=== PATIENT | male | born 1960 | race African-American/Black ===

== ENCOUNTER 2016-10-15 18:04 | Emergency (ER) | payer MEDICARE, OTHER ==
[~2016-10-15] VITALS: Ht 193 cm; Wt 77.3 kg
[~2016-10-15 18:04] MED LIST: ALBU8HFA IH; DIVA500T35 PO; LISI-662 PO; LURA80 PO; OLAN10TA6 PO; OLAN5Z PO; VITAD1000 PO
[2016-10-15 20:00] VITALS: BP 127/82
[2016-10-15] MEDS ORDERED: BENZTROPINE MESYLATE 1 MG TABLET PO ONE (20:00)
[2016-10-15] MEDS ORDERED: LORazepam 1 MG TABLET PO ONE (20:00)
[2016-10-15] MEDS ORDERED: OLANZapine 5 MG TABLET PO ONE (20:00)
== END 2016-10-15 20:20 | disposition home or self-care (01) ==
LOC: EMS 18:07
DX: F20.9 Schizophrenia, unspecified (principal)
CPT/HCPCS: 99284

== ENCOUNTER 2016-10-17 17:03 | Inpatient (IN) | payer MEDICARE, MEDICAID ==
[~2016-10-17] VITALS: Ht 193 cm; Wt 68.2 kg
[~2016-10-17 17:03] MED LIST changes: -OLAN5Z PO
[2016-10-17 18:23] LABS: BASOPHILS % (AUTO) 0.4 % (0.0-2.0); EOSINOPHILS % (AUTO) 0.5 % (1.0-6.0); HEMATOCRIT 42.4 % (41-53); HEMOGLOBIN 14.1 g/dL (13.5-17.5); LYMPHOCYTES # (AUTO) 0.9 K/uL (1.0-4.8); LYMPHOCYTES % (AUTO) 22.4 % (22.0-44.0); MEAN CORPUSCULAR HEMOGLOBIN 30.8 pg (26.0-34.0); MEAN CORPUSCULAR HGB CONC 33.2 G/dL (31.0-37.0); MEAN CORPUSCULAR VOLUME 93 fL (80-100); MONOCYTES # (AUTO) 0.4 K/uL (0.1-1.0); MONOCYTES % (AUTO) 11.1 % (2.0-9.0); NEUTROPHILS # (AUTO) 2.6 K/uL (1.8-7.7); NEUTROPHILS % (AUTO) 65.6 % (40.0-70.0); PLATELET COUNT (AUTO) 110 K/uL (150-450); RED BLOOD CELL COUNT(AUTO) 4.57 MIL/uL (4.50-5.90); RED CELL DISTRIBUTION WIDTH 14.1 % (11.5-14.5)
[2016-10-17 18:33] LABS: WHITE BLOOD COUNT (AUTO) 4.9 K/uL (4.5-11.0)
[2016-10-17 18:34] LABS: ANION GAP 9 mmol/L (8-16); CALCIUM, TOTAL 9.5 mg/dL (8.8-10.5); CARBON DIOXIDE 29 mmol/L (22-29); CHLORIDE 108 mmol/L (98-107); CREATININE 1.76 mg/dL (0.60-1.30); GLOMERULAR FILTR. RATE CALC 48 mL/min (>60); POTASSIUM 4.4 mmol/L (3.5-5.1); SODIUM SERUM 146 mmol/L (136-145); UREA NITROGEN, BLOOD 20 mg/dL (7-18)
[2016-10-17 18:42] LABS: ALANINE AMINOTRANSFERASE 23 U/L (12-78); ALBUMIN 4.1 g/dL (3.4-5.0); ASPARTATE AMINOTRANSFERASE 38 U/L (15-37); BILIRUBIN,TOTAL 1.1 mg/dL (0.1-1.0); TOTAL PROTEIN, SERUM 8.2 g/dL (6.4-8.2)
[2016-10-17] MEDS ORDERED: ZOLPIDEM TARTRATE 10 MG TABLET PO PRN (20:00)
[2016-10-17] MEDS ORDERED: HALOPERIDOL 5 MG TABLET PO ONE (20:15)
[2016-10-17] MEDS ORDERED: LORazepam 2 MG TABLET PO ONE (20:15)
[2016-10-17 22:38] VITALS: BP 118/103
[2016-10-17] MEDS ORDERED: ALBUTEROL SULFATE HFA 90 MCG/PUFF 8 GM INHALER IH PRN (23:15)
[2016-10-18] MEDS ORDERED: ALBUTEROL SULFATE HFA 90 MCG/PUFF 8 GM INHALER IH PRN (07:45)
[2016-10-18] MEDS ORDERED: IBUPROFEN 600 MG TABLET PO PRN (07:45)
[2016-10-18] MEDS ORDERED: ACETAMINOPHEN 325 MG TABLET PO PRN (07:45)
[2016-10-18] MEDS ORDERED: LOPERAMIDE HCL 2 MG CAPSULE PO PRN (07:45)
[2016-10-18] MEDS ORDERED: PETROLATUM,WHITE 71 GM JELLY TP PRN (07:45)
[2016-10-18] MEDS ORDERED: CloNIDine HCL 0.1 MG TABLET PO PRN (07:45)
[2016-10-18] MEDS ORDERED: MAGNESIUM HYDROXIDE SUSPENSION 30 ML UDCUP PO PRN (07:45)
[2016-10-18] MEDS ORDERED: MAG HYDROX/AL HYDROX/SIMETH ES 30 ML SUSPENSION UDCUP PO PRN (07:45)
[2016-10-18] MEDS ORDERED: BACITRACIN 28.4 GM OINTMENT TP PRN (07:45)
[2016-10-18] MEDS ORDERED: ONDANSETRON HCL 4 MG TABLET PO PRN (07:45)
[2016-10-18] MEDS ORDERED: BENZOCAINE/MENTHOL LOZENGE [8 LOZENGES/PACKET] MM PRN (08:00)
[2016-10-18 08:32] VITALS: BP 139/61
[2016-10-18] MEDS: LISINOPRIL 20 MG TABLET PO SCH (08:59)
[2016-10-18] MEDS: MULTIVITAMINS WITH MINERALS, THERAPEUTIC TABLET PO SCH (08:59)
[2016-10-18] MEDS: NICOTINE 21 MG/24 HOUR PATCH TD SCH (09:00)
[2016-10-18] MEDS: LORazepam 1 MG TABLET PO PRN (12:37)
[2016-10-18] MEDS: HALOPERIDOL 5 MG TABLET PO PRN (12:37)
[2016-10-18 16:50] VITALS: BP_SYST 138; BP_SYST 140; BP_DIAS 73; BP_DIAS 82
[2016-10-18] MEDS: OLANZapine 10 MG RAPDIS TABLET PO SCH (21:30)
[2016-10-18] MEDS: DIVALPROEX SODIUM 500 MG DR TABLET PO SCH (21:30)
[2016-10-19 02:24] VITALS: BP 141/98
[2016-10-19 06:53] LABS: ANION GAP 6 mmol/L (8-16); CALCIUM, TOTAL 8.8 mg/dL (8.8-10.5); CARBON DIOXIDE 29 mmol/L (22-29); CHLORIDE 104 mmol/L (98-107); CREATININE 1.12 mg/dL (0.60-1.30); GLOMERULAR FILTR. RATE CALC > 60 mL/min (>60); POTASSIUM 3.8 mmol/L (3.5-5.1); SODIUM SERUM 139 mmol/L (136-145); UREA NITROGEN, BLOOD 22 mg/dL (7-18)
[2016-10-19] MEDS: LISINOPRIL 20 MG TABLET PO SCH (08:39)
[2016-10-19] MEDS: MULTIVITAMINS WITH MINERALS, THERAPEUTIC TABLET PO SCH (08:39)
[2016-10-19] MEDS: NICOTINE 21 MG/24 HOUR PATCH TD SCH (08:41)
[2016-10-19 09:29] VITALS: BP 128/88
[2016-10-19] MEDS: HALOPERIDOL 5 MG TABLET PO PRN (10:54)
[2016-10-19] MEDS: LORazepam 1 MG TABLET PO PRN (10:54)
[2016-10-19 16:31] VITALS: BP 102/60
[2016-10-19] MEDS: OLANZapine 10 MG RAPDIS TABLET PO SCH (21:36)
[2016-10-19] MEDS: DIVALPROEX SODIUM 500 MG DR TABLET PO SCH (21:36)
[2016-10-19] MEDS ORDERED: PNEUMOCOCCAL VACCINE POLYVALENT 0.5 ML VIAL [PPSV23] IM ONE (22:15)
[2016-10-20] MEDS: LISINOPRIL 20 MG TABLET PO SCH (09:28)
[2016-10-20] MEDS: MULTIVITAMINS WITH MINERALS, THERAPEUTIC TABLET PO SCH (09:28)
[2016-10-20] MEDS: LORazepam 1 MG TABLET PO PRN (09:31)
[2016-10-20] MEDS: HALOPERIDOL 5 MG TABLET PO PRN (09:31)
[2016-10-20] MEDS: NICOTINE 21 MG/24 HOUR PATCH TD SCH (09:34)
[2016-10-20 10:33] VITALS: BP 117/64
[2016-10-20 19:19] VITALS: BP 111/58
[2016-10-20] MEDS: OLANZapine 10 MG RAPDIS TABLET PO SCH (21:23)
[2016-10-20] MEDS: DIVALPROEX SODIUM 500 MG DR TABLET PO SCH (21:23)
[2016-10-21 06:47] LABS: HEMATOCRIT 38.3 % (41-53); HEMOGLOBIN 12.8 g/dL (13.5-17.5); MEAN CORPUSCULAR HEMOGLOBIN 30.9 pg (26.0-34.0); MEAN CORPUSCULAR HGB CONC 33.3 G/dL (31.0-37.0); MEAN CORPUSCULAR VOLUME 93 fL (80-100); PLATELET COUNT (AUTO) 109 K/uL (150-450); RED BLOOD CELL COUNT(AUTO) 4.14 MIL/uL (4.50-5.90); RED CELL DISTRIBUTION WIDTH 13.8 % (11.5-14.5); WHITE BLOOD COUNT (AUTO) 3.3 K/uL (4.5-11.0)
[2016-10-21 07:12] LABS: ALANINE AMINOTRANSFERASE 25 U/L (12-78); ALBUMIN 3.3 g/dL (3.4-5.0); ANION GAP 4 mmol/L (8-16); ASPARTATE AMINOTRANSFERASE 16 U/L (15-37); BILIRUBIN,TOTAL 0.4 mg/dL (0.1-1.0); CALCIUM, TOTAL 8.9 mg/dL (8.8-10.5); CARBON DIOXIDE 32 mmol/L (22-29); CHLORIDE 106 mmol/L (98-107); CHOL/HDL RATIO 2.7 (4.2-7.3); CREATININE 1.05 mg/dL (0.60-1.30); GLOMERULAR FILTR. RATE CALC > 60 mL/min (>60); PHOSPHORUS 4.3 mg/dL (2.5-4.9); POTASSIUM 4.1 mmol/L (3.5-5.1); SODIUM SERUM 142 mmol/L (136-145); UREA NITROGEN, BLOOD 21 mg/dL (7-18)
[2016-10-21 08:15] VITALS: BP 119/65
[2016-10-21] MEDS: LISINOPRIL 20 MG TABLET PO SCH (09:23)
[2016-10-21] MEDS: MULTIVITAMINS WITH MINERALS, THERAPEUTIC TABLET PO SCH (09:23)
[2016-10-21] MEDS: NICOTINE 21 MG/24 HOUR PATCH TD SCH (09:24)
[2016-10-21 10:25] LABS: BAND NEUTROPHILS % (MANUAL) 1 % (1-5); EOSINOPHILS % (MANUAL) 2 % (1-6); LYMPHOCYTES % (MANUAL) 79 % (22-44); RBC MORPHOLOGY COMMENT NORMAL RBC MORPH; TOTAL CELLS COUNTED 100
[2016-10-21 16:35] VITALS: BP 122/79
[2016-10-21] MEDS: OLANZapine 10 MG RAPDIS TABLET PO SCH (20:24)
[2016-10-21] MEDS: DIVALPROEX SODIUM 500 MG DR TABLET PO SCH (20:24)
[2016-10-22 09:20] VITALS: BP 104/62
[2016-10-22] MEDS: MULTIVITAMINS WITH MINERALS, THERAPEUTIC TABLET PO SCH (09:26)
[2016-10-22] MEDS: NICOTINE 21 MG/24 HOUR PATCH TD SCH (09:28)
[2016-10-22] MEDS: LISINOPRIL 20 MG TABLET PO SCH (09:35)
[2016-10-22 19:02] VITALS: BP 118/64
[2016-10-22] MEDS: OLANZapine 10 MG RAPDIS TABLET PO SCH (20:55)
[2016-10-22] MEDS: DIVALPROEX SODIUM 500 MG DR TABLET PO SCH (20:55)
[2016-10-23] MEDS: MULTIVITAMINS WITH MINERALS, THERAPEUTIC TABLET PO SCH (08:47)
[2016-10-23] MEDS: LISINOPRIL 20 MG TABLET PO SCH (08:47)
[2016-10-23] MEDS: NICOTINE 21 MG/24 HOUR PATCH TD SCH (08:49)
[2016-10-23 09:29] VITALS: BP 112/78
[2016-10-23] MEDS ORDERED: MV-M1TAB2 PO (14:58)
[2016-10-23] MEDS ORDERED: FERROUS SULFATE 325 MG EC TABLET PO SCH (17:30)
== END 2016-10-23 15:00 | disposition home or self-care (01) | DRG 885 ==
LOC: EMS 17:05 → 3EI 20:16
DX: F20.0 Paranoid schizophrenia (principal); E87.0 Hyperosmolality and hypernatremia; E44.0 Moderate protein-calorie malnutrition; N17.9 Acute kidney failure, unspecified; Z68.1 Body mass index [BMI] 19.9 or less, adult; I10 Essential (primary) hypertension; R25.1 Tremor, unspecified; J44.9 Chronic obstructive pulmonary disease, unspecified; D69.6 Thrombocytopenia, unspecified; E55.9 Vitamin D deficiency, unspecified; F17.200 Nicotine dependence, unspecified, uncomplicated; D64.9 Anemia, unspecified; Z91.83 Wandering in diseases classified elsewhere; Z28.21 Immunization not carried out because of patient refusal; Z56.0 Unemployment, unspecified
CPT/HCPCS: 82306; 83735; 84100; 85049; 99285; G0480

== ENCOUNTER 2016-10-27 17:59 | Emergency (ER) | payer MEDICARE, MEDICAID ==
[~2016-10-27 17:59] MED LIST changes: -ALBU8HFA IH; -LURA80 PO; +MV-M1TAB2 PO; -VITAD1000 PO
== END 2016-10-27 18:05 | disposition left against medical advice (07) ==
LOC: EMS 18:02
DX: M79.606 Pain in leg, unspecified (principal); W19.XXXA Unspecified fall, initial encounter; Y93.89 Activity, other specified; Y92.89 Other specified places as the place of occurrence of the external cause; Y99.8 Other external cause status; Z53.21 Procedure and treatment not carried out due to patient leaving prior to being seen by health care provider

== ENCOUNTER 2018-07-19 19:10 | Emergency (ER) | payer MEDICARE, MEDICAID ==
[~2018-07-19] VITALS: Ht 185.4 cm; Wt 72.7 kg
[~2018-07-19 19:10] MED LIST changes: +DIVA-78 PO; -DIVA500T35 PO
[2018-07-19] MEDS ORDERED: LISI-662 PO (19:47)
[2018-07-19] MEDS ORDERED: OLAN10TA3 PO (19:47)
[2018-07-19] MEDS ORDERED: ZOLP10TA7 PO (19:47)
[2018-07-19] MEDS ORDERED: ARIP15TA2 PO (19:47)
[2018-07-19 21:40] LABS: BASOPHILS % (AUTO) 0.4 % (0.0-2.0); EOSINOPHILS % (AUTO) 2.7 % (1.0-6.0); HEMATOCRIT 38.7 % (41-53); HEMOGLOBIN 12.8 g/dL (13.5-17.5); LYMPHOCYTES # (AUTO) 1.1 K/uL (1.0-4.8); LYMPHOCYTES % (AUTO) 29.6 % (22.0-44.0); MEAN CORPUSCULAR HEMOGLOBIN 30.2 pg (26.0-34.0); MEAN CORPUSCULAR HGB CONC 33.1 G/dL (31.0-37.0); MEAN CORPUSCULAR VOLUME 91 fL (80-100); MONOCYTES # (AUTO) 0.4 K/uL (0.1-1.0); MONOCYTES % (AUTO) 10.7 % (2.0-9.0); NEUTROPHILS % (AUTO) 56.6 % (40.0-70.0); PLATELET COUNT (AUTO) 164 K/uL (150-450); RED BLOOD CELL COUNT(AUTO) 4.24 MIL/uL (4.50-5.90); RED CELL DISTRIBUTION WIDTH 16.5 % (11.5-14.5)
[2018-07-19 21:53] LABS: ANION GAP 5 mmol/L (8-16); CALCIUM, TOTAL 9.7 mg/dL (8.8-10.5); CARBON DIOXIDE 30 mmol/L (22-29); CHLORIDE 107 mmol/L (98-107); CREATININE 0.87 mg/dL (0.60-1.30); GLOMERULAR FILTR. RATE CALC > 60 mL/min (>60); GLUCOSE,RANDOM 71 mg/dL (70-110); POTASSIUM 4.4 mmol/L (3.5-5.1); SODIUM SERUM 142 mmol/L (136-145); UREA NITROGEN, BLOOD 21 mg/dL (7-18)
[2018-07-19 21:58] LABS: ALANINE AMINOTRANSFERASE 67 U/L (12-78); ALBUMIN 3.5 g/dL (3.4-5.0); ALKALINE PHOSPHATASE 75 U/L (46-116); ASPARTATE AMINOTRANSFERASE 36 U/L (15-37); BILIRUBIN,TOTAL 0.7 mg/dL (0.1-1.0); TOTAL PROTEIN, SERUM 7.5 g/dL (6.4-8.2)
[2018-07-20] MEDS ORDERED: LORazepam 2 MG/ML VIAL IM ONE
[2018-07-20] MEDS ORDERED: DiphenhydrAMINE HCL 50 MG/ML VIAL IM ONE
[2018-07-20 07:35] VITALS: BP 135/84
== END 2018-07-20 07:42 | disposition home or self-care (01) ==
LOC: EMS 19:12
DX: F20.9 Schizophrenia, unspecified (principal); F17.210 Nicotine dependence, cigarettes, uncomplicated; I10 Essential (primary) hypertension; Z79.899 Other long term (current) drug therapy
CPT/HCPCS: 36415; 80053; 84484; 85025; 93005 ×2; 96372; 99284; G0480; J1200; J2060

== ENCOUNTER 2018-07-23 08:46 | Inpatient (IN) | payer MEDICARE, OTHER ==
[~2018-07-23] VITALS: Ht 185.4 cm; Wt 66.3 kg
[~2018-07-23 08:46] MED LIST changes: +ARIP15TA2 PO; -DIVA-78 PO; -MV-M1TAB2 PO; +OLAN10TA3 PO; -OLAN10TA6 PO; +ZOLP10TA7 PO
[2018-07-23] MEDS ORDERED: SODIUM CHLORIDE 0.9% 1,000 ML IV ONE ×4 (09:15→13:00)
[2018-07-23 09:31] LABS: BASOPHILS % (AUTO) 0.2 % (0.0-2.0); EOSINOPHILS % (AUTO) 0.6 % (1.0-6.0); HEMATOCRIT 41.2 % (41-53); HEMOGLOBIN 13.9 g/dL (13.5-17.5); LYMPHOCYTES # (AUTO) 0.9 K/uL (1.0-4.8); LYMPHOCYTES % (AUTO) 25.6 % (22.0-44.0); MEAN CORPUSCULAR HEMOGLOBIN 30.9 pg (26.0-34.0); MEAN CORPUSCULAR HGB CONC 33.7 G/dL (31.0-37.0); MEAN CORPUSCULAR VOLUME 92 fL (80-100); MONOCYTES # (AUTO) 0.1 K/uL (0.1-1.0); MONOCYTES % (AUTO) 2.9 % (2.0-9.0); NEUTROPHILS # (AUTO) 2.5 K/uL (1.8-7.7); NEUTROPHILS % (AUTO) 70.7 % (40.0-70.0); PLATELET COUNT (AUTO) 147 K/uL (150-450); RED BLOOD CELL COUNT(AUTO) 4.48 MIL/uL (4.50-5.90); RED CELL DISTRIBUTION WIDTH 16.4 % (11.5-14.5)
[2018-07-23 09:39] LABS: INR 1.2 (0.9-1.1); PROTHROMBIN TIME 12.2 SEC (9.4-11.6)
[2018-07-23 09:42] LABS: ANION GAP 8 mmol/L (8-16); CALCIUM, TOTAL 9.8 mg/dL (8.8-10.5); CARBON DIOXIDE 27 mmol/L (22-29); CHLORIDE 106 mmol/L (98-107); CREATININE 1.35 mg/dL (0.60-1.30); GLOMERULAR FILTR. RATE CALC > 60 mL/min (>60); GLUCOSE,RANDOM 126 mg/dL (70-110); POTASSIUM 3.9 mmol/L (3.5-5.1); SODIUM SERUM 141 mmol/L (136-145); UREA NITROGEN, BLOOD 36 mg/dL (7-18)
[2018-07-23 09:55] LABS: AMMONIA < 10 umol/L (11-32); TROPONIN I < 0.02 ng/mL (0.00-0.05)
[2018-07-23 10:16] LABS: ALANINE AMINOTRANSFERASE 84 U/L (12-78); ALBUMIN 4.1 g/dL (3.4-5.0); ALKALINE PHOSPHATASE 100 U/L (46-116); ASPARTATE AMINOTRANSFERASE 116 U/L (15-37); BILIRUBIN,TOTAL 1.3 mg/dL (0.1-1.0); CREATINE KINASE, TOTAL ONLY 2615 U/L (39-308); THYROID STIMULATING HORMONE 1.44 uIU/mL (0.36-3.74); TOTAL PROTEIN, SERUM 8.6 g/dL (6.4-8.2)
[2018-07-23 10:28] LABS: LACTIC ACID 2.2 mmol/L (0.4-2.0)
[2018-07-23 11:07] LABS: AMPHET/METH SCREEN,URINE NEGATIVE (NEGATIVE); BARBITURATE SCREEN, URINE NEGATIVE (NEGATIVE); BENZODIAZEPINES SCREEN,URINE NEGATIVE (NEGATIVE); CANNABINOID SCREEN,URINE NEGATIVE (NEGATIVE); COCAINE SCREEN,URINE NEGATIVE (NEGATIVE); METHADONE SCREEN, URINE NEGATIVE (NEGATIVE); OPIATE SCREEN,URINE NEGATIVE (NEGATIVE)
[2018-07-23 11:08] LABS: PHENCYCLIDINE SCREEN,URINE NEGATIVE (NEGATIVE)
[2018-07-23 12:00] LABS: APPEARANCE,URINE CLEAR (CLEAR); BILIRUBIN,URINE NEGATIVE (NEGATIVE); GLUCOSE, URINE (UA) 250 mg/dL (NEGATIVE); KETONES,URINE NEGATIVE (NEGATIVE); LEUKOCYTE ESTERASE ,URINE NEGATIVE (NEGATIVE); NITRATE,URINE NEGATIVE (NEGATIVE); OCCULT BLOOD,URINE NEGATIVE (NEGATIVE); PROTEIN,URINE NEGATIVE (NEGATIVE)
[2018-07-23 12:29] LABS: BACTERIA,URINE Rare /HPF (None Seen); RBC,URINE None Seen /HPF (0-2); SQUAMOUS EPITHELIAL CELL,UR Few /LPF (None Seen); WBC,URINE 0-2 /HPF (0-5)
[2018-07-23] MEDS ORDERED: ONDANSETRON HCL 4 MG/2 ML VIAL IVP PRN (13:00)
[2018-07-23] MEDS ORDERED: ACETAMINOPHEN 325 MG TABLET PO PRN ×2 (13:00→13:15)
[2018-07-23] MEDS ORDERED: MAGNESIUM HYDROXIDE SUSPENSION 30 ML UDCUP PO PRN (13:15)
[2018-07-23] MEDS ORDERED: ALBUTEROL SULFATE 2.5 MG/0.5 ML NEB SOLUTION NEB PRN (13:15)
[2018-07-23] MEDS: LORazepam 2 MG/ML VIAL IM ONE ×2 (13:28→13:33)
[2018-07-23] MEDS: HALOPERIDOL LACTATE 5 MG/ML VIAL IM ONE ×2 (13:28→13:33)
[2018-07-23] MEDS ORDERED: LORazepam 2 MG/ML VIAL IVP ONE (13:45)
[2018-07-23] MEDS ORDERED: HALOPERIDOL 5 MG TABLET PO ONE (13:45)
[2018-07-23 14:37] VITALS: BP 92/58
[2018-07-23] MEDS: MULTIVITAMINS WITH MINERALS, THERAPEUTIC TABLET PO SCH (15:05)
[2018-07-23] MEDS: SODIUM CHLORIDE 0.9% 1,000 ML IV SCH ×2 (15:06→20:41)
[2018-07-23 17:17] VITALS: BP 101/55
[2018-07-23 20:24] VITALS: BP 99/55
[2018-07-23] MEDS: DOCUSATE SODIUM 100 MG CAPSULE PO SCH (20:28)
[2018-07-23] MEDS: HEPARIN SODIUM,PORCINE 5,000 UNITS/ML VIAL SQ SCH (20:28)
[2018-07-24 00:07] VITALS: BP 99/40
[2018-07-24] MEDS: SODIUM CHLORIDE 0.9% 1,000 ML IV SCH ×2 (01:33→14:19)
[2018-07-24 04:22] VITALS: BP 94/58
[2018-07-24] MEDS: FAMOTIDINE 20 MG TABLET PO SCH (08:00)
[2018-07-24] MEDS: MULTIVITAMINS WITH MINERALS, THERAPEUTIC TABLET PO SCH (08:00)
[2018-07-24] MEDS: HEPARIN SODIUM,PORCINE 5,000 UNITS/ML VIAL SQ SCH ×2 (08:00→20:38)
[2018-07-24] MEDS: DOCUSATE SODIUM 100 MG CAPSULE PO SCH ×2 (08:00→20:38)
[2018-07-24 14:03] VITALS: BP 139/94
[2018-07-24 20:04] VITALS: BP 125/82
[2018-07-24] MEDS: OLANZapine 10 MG TABLET PO SCH (21:00)
[2018-07-25 00:15] VITALS: BP 118/80
[2018-07-25 04:25] VITALS: BP 110/78
[2018-07-25 08:02] LABS: ANION GAP 6 mmol/L (8-16); CALCIUM, TOTAL 8.9 mg/dL (8.8-10.5); CARBON DIOXIDE 26 mmol/L (22-29); CHLORIDE 110 mmol/L (98-107); CREATINE KINASE, TOTAL ONLY 482 U/L (39-308); CREATININE 0.88 mg/dL (0.60-1.30); GLOMERULAR FILTR. RATE CALC > 60 mL/min (>60); GLUCOSE,RANDOM 86 mg/dL (70-110); POTASSIUM 4.7 mmol/L (3.5-5.1); SODIUM SERUM 142 mmol/L (136-145); UREA NITROGEN, BLOOD 12 mg/dL (7-18)
[2018-07-25] MEDS: MULTIVITAMINS WITH MINERALS, THERAPEUTIC TABLET PO SCH (09:19)
[2018-07-25] MEDS: HEPARIN SODIUM,PORCINE 5,000 UNITS/ML VIAL SQ SCH ×2 (09:20→20:41)
[2018-07-25] MEDS: DOCUSATE SODIUM 100 MG CAPSULE PO SCH ×2 (09:20→20:40)
[2018-07-25] MEDS: FAMOTIDINE 20 MG TABLET PO SCH (09:20)
[2018-07-25 09:27] VITALS: BP 120/58
[2018-07-25 12:00] VITALS: BP 140/67
[2018-07-25] MEDS: SODIUM CHLORIDE 0.9% 1,000 ML IV SCH (15:48)
[2018-07-25 20:18] VITALS: BP 147/70
[2018-07-25] MEDS: OLANZapine 10 MG TABLET PO SCH (20:40)
[2018-07-26 03:33] VITALS: BP 126/56
[2018-07-26 07:35] VITALS: BP 127/58
[2018-07-26] MEDS: FAMOTIDINE 20 MG TABLET PO SCH (08:34)
[2018-07-26] MEDS: HEPARIN SODIUM,PORCINE 5,000 UNITS/ML VIAL SQ SCH (08:34)
[2018-07-26] MEDS: MULTIVITAMINS WITH MINERALS, THERAPEUTIC TABLET PO SCH (08:34)
[2018-07-26] MEDS: DOCUSATE SODIUM 100 MG CAPSULE PO SCH (08:34)
[2018-07-26 11:36] VITALS: BP 123/65
[2018-07-26 15:30] VITALS: BP 157/74
[2018-07-27] MEDS ORDERED: LISI-662 PO (15:02)
[2018-07-27] MEDS ORDERED: ZOLP10TA7 PO (15:02)
== END 2018-07-26 17:00 | disposition home or self-care (01) | DRG 314 ==
LOC: EMS 08:48 → 5S 13:22 → 6N 07-24 12:22 → 5N 07-25 17:40
PROVIDERS: ADMIT Internal Medicine; ATTEND Internal Medicine
DX: I95.9 Hypotension, unspecified (principal); G93.41 Metabolic encephalopathy; E43 Unspecified severe protein-calorie malnutrition; M62.82 Rhabdomyolysis; F20.0 Paranoid schizophrenia; Z68.1 Body mass index [BMI] 19.9 or less, adult; I10 Essential (primary) hypertension; J44.9 Chronic obstructive pulmonary disease, unspecified; F17.210 Nicotine dependence, cigarettes, uncomplicated; L40.9 Psoriasis, unspecified; R00.1 Bradycardia, unspecified; T68.XXXA Hypothermia, initial encounter; Z59.0 Homelessness; Z79.899 Other long term (current) drug therapy
CPT/HCPCS: 70450; 83605; 84443; 87040; 87081; 93005; 93306; 99291; G0378; G0480; J1630; J1644; J2060; J7030

== ENCOUNTER 2018-07-27 14:52 | Inpatient (IN) | payer MEDICARE, MEDICAID ==
[~2018-07-27] VITALS: Ht 182.9 cm; Wt 63.3 kg
[~2018-07-27 14:52] MED LIST changes: -ARIP15TA2 PO; -LISI-662 PO; -ZOLP10TA7 PO
[2018-07-27] MEDS ORDERED: ZOLP10TA7 PO (15:02)
[2018-07-27] MEDS ORDERED: LISI-662 PO (15:02)
[2018-07-27 16:25] LABS: BASOPHILS % (AUTO) 0.2 % (0.0-2.0); EOSINOPHILS % (AUTO) 1.6 % (1.0-6.0); HEMOGLOBIN 12.9 g/dL (13.5-17.5); LYMPHOCYTES # (AUTO) 0.4 K/uL (1.0-4.8); LYMPHOCYTES % (AUTO) 18.5 % (22.0-44.0); MEAN CORPUSCULAR HEMOGLOBIN 30.5 pg (26.0-34.0); MEAN CORPUSCULAR HGB CONC 33.1 G/dL (31.0-37.0); MEAN CORPUSCULAR VOLUME 92 fL (80-100); MONOCYTES # (AUTO) 0.2 K/uL (0.1-1.0); MONOCYTES % (AUTO) 8.7 % (2.0-9.0); NEUTROPHILS # (AUTO) 1.5 K/uL (1.8-7.7); PLATELET COUNT (AUTO) 120 K/uL (150-450); RED BLOOD CELL COUNT(AUTO) 4.23 MIL/uL (4.50-5.90); RED CELL DISTRIBUTION WIDTH 15.9 % (11.5-14.5)
[2018-07-27 16:28] LABS: ANION GAP 7 mmol/L (8-16); CALCIUM, TOTAL 9.9 mg/dL (8.8-10.5); CARBON DIOXIDE 31 mmol/L (22-29); CHLORIDE 103 mmol/L (98-107); CREATININE 0.84 mg/dL (0.60-1.30); GLOMERULAR FILTR. RATE CALC > 60 mL/min (>60); GLUCOSE,RANDOM 108 mg/dL (70-110); POTASSIUM 3.9 mmol/L (3.5-5.1); SODIUM SERUM 141 mmol/L (136-145); UREA NITROGEN, BLOOD 13 mg/dL (7-18)
[2018-07-27 16:35] LABS: ALANINE AMINOTRANSFERASE 60 U/L (12-78); ALBUMIN 3.4 g/dL (3.4-5.0); ALKALINE PHOSPHATASE 107 U/L (46-116); ASPARTATE AMINOTRANSFERASE 39 U/L (15-37); BILIRUBIN,TOTAL 0.7 mg/dL (0.1-1.0); TOTAL PROTEIN, SERUM 8.1 g/dL (6.4-8.2)
[2018-07-27] MEDS ORDERED: HALOPERIDOL 5 MG TABLET PO PRN (17:00)
[2018-07-27] MEDS ORDERED: LORazepam 2 MG TABLET PO PRN (17:00)
[2018-07-27 19:34] LABS: AMPHET/METH SCREEN,URINE NEGATIVE (NEGATIVE); BARBITURATE SCREEN, URINE NEGATIVE (NEGATIVE); BENZODIAZEPINES SCREEN,URINE NEGATIVE (NEGATIVE); CANNABINOID SCREEN,URINE NEGATIVE (NEGATIVE); COCAINE SCREEN,URINE NEGATIVE (NEGATIVE); METHADONE SCREEN, URINE NEGATIVE (NEGATIVE); OPIATE SCREEN,URINE NEGATIVE (NEGATIVE); PHENCYCLIDINE SCREEN,URINE NEGATIVE (NEGATIVE)
[2018-07-27 20:43] VITALS: BP 138/84
[2018-07-27] MEDS ORDERED: MAG HYDROX/AL HYDROX/SIMETH ES 30 ML SUSPENSION UDCUP PO PRN (21:45)
[2018-07-27] MEDS ORDERED: BACITRACIN 28.4 GM OINTMENT TP PRN (21:45)
[2018-07-27] MEDS ORDERED: CloNIDine HCL 0.1 MG TABLET PO PRN (21:45)
[2018-07-27] MEDS ORDERED: LOPERAMIDE HCL 2 MG CAPSULE PO PRN (21:45)
[2018-07-27] MEDS ORDERED: ALBUTEROL SULFATE HFA 90 MCG/PUFF 8 GM INHALER IH PRN (21:45)
[2018-07-27] MEDS ORDERED: IBUPROFEN 600 MG TABLET PO PRN (21:45)
[2018-07-27] MEDS ORDERED: PETROLATUM,WHITE 28 GM JELLY TP PRN (21:45)
[2018-07-27] MEDS ORDERED: MAGNESIUM HYDROXIDE SUSPENSION 30 ML UDCUP PO PRN (21:45)
[2018-07-27] MEDS ORDERED: ACETAMINOPHEN 325 MG TABLET PO PRN (21:45)
[2018-07-27] MEDS ORDERED: ONDANSETRON HCL 4 MG TABLET PO PRN (21:45)
[2018-07-27] MEDS ORDERED: BENZOCAINE/MENTHOL LOZENGE MM PRN (21:45)
[2018-07-28] MEDS: DOCUSATE SODIUM 100 MG CAPSULE PO SCH (08:27)
[2018-07-28] MEDS: MULTIVITAMINS WITH IRON TABLET PO SCH (08:27)
[2018-07-28] MEDS: OMEPRAZOLE 20 MG CAPSULE PO SCH (08:27)
[2018-07-28] MEDS: LISINOPRIL 20 MG TABLET PO SCH (08:27)
[2018-07-28 09:23] VITALS: BP 160/106
[2018-07-28 18:16] VITALS: BP 160/98
[2018-07-28] MEDS: DIVALPROEX SODIUM 500 MG ER TABLET PO SCH (20:51)
[2018-07-28] MEDS: OLANZapine 10 MG TABLET PO SCH (20:51)
[2018-07-29 04:09] VITALS: BP 139/76
[2018-07-29] MEDS: DOCUSATE SODIUM 100 MG CAPSULE PO SCH (08:00)
[2018-07-29] MEDS: OMEPRAZOLE 20 MG CAPSULE PO SCH (08:01)
[2018-07-29] MEDS: MULTIVITAMINS WITH IRON TABLET PO SCH (08:01)
[2018-07-29] MEDS: LISINOPRIL 20 MG TABLET PO SCH (08:02)
[2018-07-29 08:34] VITALS: BP 112/66
[2018-07-29 16:35] VITALS: BP 105/69
[2018-07-29] MEDS: DIVALPROEX SODIUM 500 MG ER TABLET PO SCH (20:13)
[2018-07-29] MEDS: OLANZapine 10 MG TABLET PO SCH (20:13)
[2018-07-30] MEDS: LISINOPRIL 20 MG TABLET PO SCH (08:14)
[2018-07-30] MEDS: DOCUSATE SODIUM 100 MG CAPSULE PO SCH (08:14)
[2018-07-30] MEDS: OMEPRAZOLE 20 MG CAPSULE PO SCH (08:14)
[2018-07-30] MEDS: MULTIVITAMINS WITH IRON TABLET PO SCH (08:14)
[2018-07-30 09:01] VITALS: BP 107/78
[2018-07-30 16:39] VITALS: BP 133/87
[2018-07-30] MEDS: OLANZapine 10 MG TABLET PO SCH (20:31)
[2018-07-30] MEDS: DIVALPROEX SODIUM 500 MG ER TABLET PO SCH (20:31)
[2018-07-31] MEDS: ZOLPIDEM TARTRATE 10 MG TABLET PO PRN (02:56)
[2018-07-31 03:00] VITALS: BP 158/71
[2018-07-31] MEDS: LISINOPRIL 20 MG TABLET PO SCH (08:03)
[2018-07-31] MEDS: OMEPRAZOLE 20 MG CAPSULE PO SCH (08:03)
[2018-07-31] MEDS: MULTIVITAMINS WITH IRON TABLET PO SCH (08:03)
[2018-07-31] MEDS: DOCUSATE SODIUM 100 MG CAPSULE PO SCH (08:03)
[2018-07-31 11:15] VITALS: BP 136/85
[2018-07-31 16:01] VITALS: BP 121/76
[2018-07-31] MEDS: OLANZapine 10 MG TABLET PO SCH (20:26)
[2018-07-31] MEDS: DIVALPROEX SODIUM 500 MG ER TABLET PO SCH (20:26)
[2018-08-01] VITALS: BP 119/69
[2018-08-01] MEDS: ZOLPIDEM TARTRATE 10 MG TABLET PO PRN (00:02)
[2018-08-01 08:05] VITALS: BP 155/66
[2018-08-01] MEDS: LISINOPRIL 20 MG TABLET PO SCH (08:22)
[2018-08-01] MEDS: OMEPRAZOLE 20 MG CAPSULE PO SCH (08:22)
[2018-08-01] MEDS: DOCUSATE SODIUM 100 MG CAPSULE PO SCH (08:22)
[2018-08-01] MEDS: MULTIVITAMINS WITH IRON TABLET PO SCH (08:22)
[2018-08-01 16:19] VITALS: BP 126/76
[2018-08-01] MEDS: OLANZapine 10 MG TABLET PO SCH (20:06)
[2018-08-01] MEDS: DIVALPROEX SODIUM 500 MG ER TABLET PO SCH (20:06)
[2018-08-02 08:11] VITALS: BP 143/95
[2018-08-02] MEDS: OMEPRAZOLE 20 MG CAPSULE PO SCH (08:30)
[2018-08-02] MEDS: DOCUSATE SODIUM 100 MG CAPSULE PO SCH (08:30)
[2018-08-02] MEDS: LISINOPRIL 20 MG TABLET PO SCH (08:30)
[2018-08-02] MEDS: MULTIVITAMINS WITH IRON TABLET PO SCH (08:30)
[2018-08-02 16:26] VITALS: BP 104/66
[2018-08-02] MEDS: OLANZapine 10 MG TABLET PO SCH (20:51)
[2018-08-02] MEDS: DIVALPROEX SODIUM 500 MG ER TABLET PO SCH (20:51)
[2018-08-03] MEDS: LISINOPRIL 20 MG TABLET PO SCH (08:39)
[2018-08-03] MEDS: OMEPRAZOLE 20 MG CAPSULE PO SCH (08:39)
[2018-08-03] MEDS: DOCUSATE SODIUM 100 MG CAPSULE PO SCH (08:39)
[2018-08-03] MEDS: MULTIVITAMINS WITH IRON TABLET PO SCH (08:39)
[2018-08-03 09:33] VITALS: BP 150/74
[2018-08-03 16:56] VITALS: BP 98/60
[2018-08-03] MEDS: DIVALPROEX SODIUM 500 MG ER TABLET PO SCH (20:32)
[2018-08-03] MEDS: OLANZapine 10 MG TABLET PO SCH (20:32)
[2018-08-04 01:38] VITALS: BP 139/88
[2018-08-04] MEDS: DOCUSATE SODIUM 100 MG CAPSULE PO SCH (08:09)
[2018-08-04] MEDS: LISINOPRIL 20 MG TABLET PO SCH (08:09)
[2018-08-04] MEDS: MULTIVITAMINS WITH IRON TABLET PO SCH (08:09)
[2018-08-04] MEDS: OMEPRAZOLE 20 MG CAPSULE PO SCH (08:09)
[2018-08-04 08:30] VITALS: BP 126/112
[2018-08-04 16:14] VITALS: BP 133/64
[2018-08-04] MEDS: DIVALPROEX SODIUM 500 MG ER TABLET PO SCH (20:27)
[2018-08-04] MEDS: OLANZapine 10 MG TABLET PO SCH (20:27)
[2018-08-04] MEDS: ZOLPIDEM TARTRATE 10 MG TABLET PO PRN (20:55)
[2018-08-05 08:22] VITALS: BP 133/86
[2018-08-05] MEDS: MULTIVITAMINS WITH IRON TABLET PO SCH (08:35)
[2018-08-05] MEDS: OMEPRAZOLE 20 MG CAPSULE PO SCH (08:35)
[2018-08-05] MEDS: LISINOPRIL 20 MG TABLET PO SCH (08:35)
[2018-08-05] MEDS: DOCUSATE SODIUM 100 MG CAPSULE PO SCH (08:35)
[2018-08-05 16:48] VITALS: BP 121/81
[2018-08-05] MEDS: DIVALPROEX SODIUM 500 MG ER TABLET PO SCH (20:16)
[2018-08-05] MEDS: OLANZapine 10 MG TABLET PO SCH (20:16)
[2018-08-05] MEDS: ZOLPIDEM TARTRATE 10 MG TABLET PO PRN (20:17)
[2018-08-06 08:05] VITALS: BP 103/80
[2018-08-06] MEDS: DOCUSATE SODIUM 100 MG CAPSULE PO SCH (08:06)
[2018-08-06] MEDS: MULTIVITAMINS WITH IRON TABLET PO SCH (08:06)
[2018-08-06] MEDS: OMEPRAZOLE 20 MG CAPSULE PO SCH (08:06)
[2018-08-06] MEDS: LISINOPRIL 20 MG TABLET PO SCH (08:06)
[2018-08-06] MEDS ORDERED: DIVA500T52 PO (17:12)
[2018-08-06] MEDS ORDERED: DSS100 PO (17:15)
[2018-08-06] MEDS ORDERED: MULT-1203 PO (17:16)
[2018-08-06] MEDS ORDERED: OMEP20 PO (17:17)
== END 2018-08-06 19:45 | DRG 885 ==
LOC: EMS 14:54 → 3EX 19:00
DX: F20.0 Paranoid schizophrenia (principal); D61.818 Other pancytopenia; I10 Essential (primary) hypertension; J44.9 Chronic obstructive pulmonary disease, unspecified; F17.200 Nicotine dependence, unspecified, uncomplicated; F12.90 Cannabis use, unspecified, uncomplicated; L40.9 Psoriasis, unspecified; F15.90 Other stimulant use, unspecified, uncomplicated; E55.9 Vitamin D deficiency, unspecified; Z56.0 Unemployment, unspecified; Z71.6 Tobacco abuse counseling; Z79.899 Other long term (current) drug therapy
CPT/HCPCS: 87081; G0378; G0480

== ENCOUNTER 2019-02-04 18:20 | Inpatient (IN) | payer MEDICARE, MEDICAID ==
[~2019-02-04] VITALS: Ht 195.6 cm; Wt 74.9 kg
[~2019-02-04 18:20] MED LIST changes: +DIVA500T52 PO; +DSS100 PO; +LISI-662 PO; +MULT-1203 PO; +OMEP20 PO
[2019-02-04 20:10] LABS: BASOPHILS % (AUTO) 0.8 % (0.0-2.0); HEMATOCRIT 42.3 % (41-53); HEMOGLOBIN 13.9 g/dL (13.5-17.5); LYMPHOCYTES # (AUTO) 1.4 K/uL (1.0-4.8); LYMPHOCYTES % (AUTO) 33.9 % (22.0-44.0); MEAN CORPUSCULAR HEMOGLOBIN 29.9 pg (26.0-34.0); MEAN CORPUSCULAR HGB CONC 32.8 G/dL (31.0-37.0); MEAN CORPUSCULAR VOLUME 91 fL (80-100); MONOCYTES # (AUTO) 0.2 K/uL (0.1-1.0); MONOCYTES % (AUTO) 5.8 % (2.0-9.0); NEUTROPHILS # (AUTO) 2.3 K/uL (1.8-7.7); NEUTROPHILS % (AUTO) 57.5 % (40.0-70.0); PLATELET COUNT (AUTO) 152 K/uL (150-450); RED BLOOD CELL COUNT(AUTO) 4.64 MIL/uL (4.50-5.90); RED CELL DISTRIBUTION WIDTH 13.8 % (11.5-14.5)
[2019-02-04 20:21] LABS: APPEARANCE,URINE CLEAR (CLEAR); BILIRUBIN,URINE NEGATIVE (NEGATIVE); GLUCOSE, URINE (UA) NEGATIVE (NEGATIVE); KETONES,URINE NEGATIVE (NEGATIVE); LEUKOCYTE ESTERASE ,URINE NEGATIVE (NEGATIVE); NITRATE,URINE NEGATIVE (NEGATIVE); OCCULT BLOOD,URINE NEGATIVE (NEGATIVE); PH,URINE 6.5 (5.0-8.0); PROTEIN,URINE NEGATIVE (NEGATIVE); UROBILINOGEN,URINE 0.2 mg/dL (<=1.0)
[2019-02-04 20:23] LABS: ANION GAP 9 mmol/L (8-16); CALCIUM, TOTAL 9.3 mg/dL (8.8-10.5); CARBON DIOXIDE 27 mmol/L (22-29); CHLORIDE 106 mmol/L (98-107); CREATININE 1.34 mg/dL (0.60-1.30); GLOMERULAR FILTR. RATE CALC > 60 mL/min (>60); GLUCOSE,RANDOM 112 mg/dL (70-110); POTASSIUM 3.5 mmol/L (3.5-5.1); SODIUM SERUM 142 mmol/L (136-145); UREA NITROGEN, BLOOD 15 mg/dL (7-18)
[2019-02-04 20:29] LABS: ALANINE AMINOTRANSFERASE 10 U/L (12-78); ALBUMIN 3.9 g/dL (3.4-5.0); ALKALINE PHOSPHATASE 58 U/L (46-116); ASPARTATE AMINOTRANSFERASE 19 U/L (15-37); BILIRUBIN,TOTAL 0.8 mg/dL (0.1-1.0); TOTAL PROTEIN, SERUM 8.1 g/dL (6.4-8.2)
[2019-02-04 20:33] LABS: AMPHET/METH SCREEN,URINE NEGATIVE (NEGATIVE); BARBITURATE SCREEN, URINE NEGATIVE (NEGATIVE); BENZODIAZEPINES SCREEN,URINE NEGATIVE (NEGATIVE); CANNABINOID SCREEN,URINE NEGATIVE (NEGATIVE); COCAINE SCREEN,URINE NEGATIVE (NEGATIVE); METHADONE SCREEN, URINE NEGATIVE (NEGATIVE); OPIATE SCREEN,URINE NEGATIVE (NEGATIVE)
[2019-02-04 20:37] LABS: PHENCYCLIDINE SCREEN,URINE NEGATIVE (NEGATIVE)
[2019-02-04 20:39] LABS: BACTERIA,URINE None Seen /HPF (None Seen); RBC,URINE None Seen /HPF (0-2); SQUAMOUS EPITHELIAL CELL,UR Rare /LPF (None Seen); WBC,URINE None Seen /HPF (0-5)
[2019-02-04] MEDS ORDERED: ZOLPIDEM TARTRATE 10 MG TABLET PO PRN (22:30)
[2019-02-04] MEDS ORDERED: OLANZapine 5 MG RAPDIS TABLET PO PRN (22:30)
[2019-02-05] MEDS: LORazepam 2 MG TABLET PO PRN (03:05)
[2019-02-05 03:24] VITALS: BP 189/115
[2019-02-05] MEDS ORDERED: PNEUMOCOCCAL VACCINE POLYVALENT 0.5 ML VIAL [PPSV23] IM ONE (05:45)
[2019-02-05 08:13] LABS: CHOL/HDL RATIO 2.9 (4.2-7.3)
[2019-02-05 08:33] VITALS: BP 146/100
[2019-02-05 17:00] VITALS: BP 125/89
[2019-02-05] MEDS: OLANZapine 10 MG TABLET PO SCH (20:34)
[2019-02-05] MEDS: DIVALPROEX SODIUM 500 MG DR TABLET PO SCH (20:34)
[2019-02-06 08:00] VITALS: BP 118/54
[2019-02-06 17:39] VITALS: BP 154/99
[2019-02-06] MEDS: OLANZapine 10 MG TABLET PO SCH (20:33)
[2019-02-06] MEDS: DIVALPROEX SODIUM 500 MG DR TABLET PO SCH (20:33)
[2019-02-07 12:00] VITALS: BP 149/109
[2019-02-07] MEDS: OLANZapine 10 MG TABLET PO SCH ×2 (12:56→20:20)
[2019-02-07 13:45] VITALS: BP 131/99
[2019-02-07] MEDS: BENZTROPINE MESYLATE 2 MG TABLET PO SCH ×2 (14:14→20:20)
[2019-02-07] MEDS: LISINOPRIL 20 MG TABLET PO SCH (14:15)
[2019-02-07 16:00] VITALS: BP 155/99
[2019-02-07] MEDS ORDERED: PETROLATUM,WHITE 28 GM JELLY TP PRN (16:00)
[2019-02-07] MEDS ORDERED: ALBUTEROL SULFATE HFA 90 MCG/PUFF 8 GM INHALER IH PRN (16:00)
[2019-02-07] MEDS ORDERED: MAGNESIUM HYDROXIDE SUSPENSION 30 ML UDCUP PO PRN (16:00)
[2019-02-07] MEDS ORDERED: CloNIDine HCL 0.1 MG TABLET PO PRN (16:00)
[2019-02-07] MEDS ORDERED: LOPERAMIDE HCL 2 MG CAPSULE PO PRN (16:00)
[2019-02-07] MEDS ORDERED: NICOTINE 14 MG/24 HOUR PATCH TD PRN (16:00)
[2019-02-07] MEDS ORDERED: DOCUSATE SODIUM 100 MG CAPSULE PO PRN (16:00)
[2019-02-07] MEDS ORDERED: ONDANSETRON HCL 4 MG TABLET PO PRN (16:00)
[2019-02-07] MEDS ORDERED: GuaiFENesin/D-METHORPHAN [SUGAR-FREE] 200-20MG/10 ML SYRUP UDCUP PO PRN (16:00)
[2019-02-07] MEDS ORDERED: MAG HYDROX/AL HYDROX/SIMETH ES 30 ML SUSPENSION UDCUP PO PRN (16:00)
[2019-02-07] MEDS ORDERED: ACETAMINOPHEN 325 MG TABLET PO PRN (16:00)
[2019-02-07] MEDS ORDERED: IBUPROFEN 400 MG TABLET PO PRN (16:00)
[2019-02-07] MEDS: DIVALPROEX SODIUM 500 MG DR TABLET PO SCH (20:20)
[2019-02-08] MEDS: LISINOPRIL 20 MG TABLET PO SCH (08:15)
[2019-02-08] MEDS: OLANZapine 10 MG TABLET PO SCH ×2 (08:15→20:14)
[2019-02-08] MEDS: BENZTROPINE MESYLATE 2 MG TABLET PO SCH ×2 (08:15→16:24)
[2019-02-08 09:00] VITALS: BP 138/92
[2019-02-08] MEDS: LORazepam 2 MG TABLET PO PRN (09:33)
[2019-02-08 17:56] VITALS: BP 119/80
[2019-02-08] MEDS: DIVALPROEX SODIUM 500 MG DR TABLET PO SCH (20:14)
[2019-02-09] MEDS: OLANZapine 10 MG TABLET PO SCH (08:10)
[2019-02-09] MEDS: LISINOPRIL 20 MG TABLET PO SCH (08:10)
[2019-02-09] MEDS: BENZTROPINE MESYLATE 2 MG TABLET PO SCH (08:10)
[2019-02-09 10:41] VITALS: BP 133/87
== END 2019-02-09 14:00 | DRG 885 ==
LOC: EMS 18:24 → 3EX 02-05 00:34
PROVIDERS: ADMIT Psychiatry & Neurology Psychiatry; ATTEND Psychiatry & Neurology Psychiatry
DX: F20.0 Paranoid schizophrenia (principal); N17.9 Acute kidney failure, unspecified; J44.9 Chronic obstructive pulmonary disease, unspecified; I10 Essential (primary) hypertension; F94.0 Selective mutism; K21.9 Gastro-esophageal reflux disease without esophagitis; K59.00 Constipation, unspecified; F17.210 Nicotine dependence, cigarettes, uncomplicated; Z79.899 Other long term (current) drug therapy
CPT/HCPCS: 87081; 93005; G0378; G0480

== ENCOUNTER 2019-06-21 18:03 | Inpatient (IN) | payer MEDICARE, OTHER ==
[~2019-06-21] VITALS: Ht 190.5 cm; Wt 76.5 kg
[~2019-06-21 18:03] MED LIST changes: -DSS100 PO; -MULT-1203 PO; -OMEP20 PO
[2019-06-21] MEDS ORDERED: SODIUM CHLORIDE 0.9% 1,000 ML IV ONE ×2 (18:15→23:15)
[2019-06-21] MEDS ORDERED: 0.9% SODIUM CHLORIDE 10 ML SYRINGE IVP PRN (18:15)
[2019-06-21 19:19] LABS: BASOPHILS % (AUTO) 0.3 % (0.0-2.0); EOSINOPHILS % (AUTO) 0.9 % (1.0-6.0); HEMATOCRIT 38.2 % (41-53); HEMOGLOBIN 12.8 g/dL (13.5-17.5); LYMPHOCYTES # (AUTO) 0.4 K/uL (1.0-4.8); LYMPHOCYTES % (AUTO) 20.1 % (22.0-44.0); MEAN CORPUSCULAR HGB CONC 33.4 G/dL (31.0-37.0); MEAN CORPUSCULAR VOLUME 90 fL (80-100); MONOCYTES # (AUTO) 0.2 K/uL (0.1-1.0); NEUTROPHILS # (AUTO) 1.2 K/uL (1.8-7.7); NEUTROPHILS % (AUTO) 69.7 % (40.0-70.0); RED BLOOD CELL COUNT(AUTO) 4.26 MIL/uL (4.50-5.90); RED CELL DISTRIBUTION WIDTH 15.4 % (11.5-14.5)
[2019-06-21 19:25] LABS: ANION GAP 8 mmol/L (8-16); CARBON DIOXIDE 28 mmol/L (22-29); CHLORIDE 106 mmol/L (98-107); CREATININE 0.66 mg/dL (0.60-1.30); GLOMERULAR FILTR. RATE CALC > 60 mL/min (>60); GLUCOSE,RANDOM 82 mg/dL (70-110); POTASSIUM 4.3 mmol/L (3.5-5.1); SODIUM SERUM 142 mmol/L (136-145); UREA NITROGEN, BLOOD 16 mg/dL (7-18)
[2019-06-21 19:28] LABS: APPEARANCE,URINE CLEAR (CLEAR); BILIRUBIN,URINE NEGATIVE (NEGATIVE); GLUCOSE, URINE (UA) NEGATIVE (NEGATIVE); KETONES,URINE TRACE mg/dL (NEGATIVE); LEUKOCYTE ESTERASE ,URINE NEGATIVE (NEGATIVE); NITRATE,URINE NEGATIVE (NEGATIVE); OCCULT BLOOD,URINE NEGATIVE (NEGATIVE); PROTEIN,URINE NEGATIVE (NEGATIVE)
[2019-06-21 19:28] LABS: D-DIMER 0.17 mg/L FEU (0.00-0.50); INR 1.3 (0.9-1.1); PROTHROMBIN TIME 13.1 SEC (9.4-11.6)
[2019-06-21 19:34] LABS: TROPONIN I 0.04 ng/mL (0.00-0.05)
[2019-06-21 19:34] LABS: LACTIC ACID 0.8 mmol/L (0.4-2.0)
[2019-06-21 19:40] LABS: AMPHET/METH SCREEN,URINE NEGATIVE (NEGATIVE); BARBITURATE SCREEN, URINE NEGATIVE (NEGATIVE); BENZODIAZEPINES SCREEN,URINE NEGATIVE (NEGATIVE); CANNABINOID SCREEN,URINE NEGATIVE (NEGATIVE); COCAINE SCREEN,URINE NEGATIVE (NEGATIVE); METHADONE SCREEN, URINE NEGATIVE (NEGATIVE); OPIATE SCREEN,URINE NEGATIVE (NEGATIVE)
[2019-06-21 19:41] LABS: PHENCYCLIDINE SCREEN,URINE NEGATIVE (NEGATIVE)
[2019-06-21 19:44] LABS: B-TYPE NATRIURETIC PEPTIDE 48 pg/mL (0-100)
[2019-06-21 19:49] LABS: PLATELET COUNT (AUTO) 87 K/uL (150-450); PLATELET MORPHOLOGY COMMENT GIANT PLTS PRESENT
[2019-06-21 20:00] LABS: ALANINE AMINOTRANSFERASE 69 U/L (12-78); ALBUMIN 3.5 g/dL (3.4-5.0); ALKALINE PHOSPHATASE 67 U/L (46-116); ASPARTATE AMINOTRANSFERASE 83 U/L (15-37); BILIRUBIN,TOTAL 0.4 mg/dL (0.1-1.0); TOTAL PROTEIN, SERUM 7.9 g/dL (6.4-8.2)
[2019-06-21 20:03] LABS: CREATINE KINASE, TOTAL ONLY 1005 U/L (39-308)
[2019-06-21] MEDS ORDERED: IOVERSOL 350 MG/ML 100 ML VIAL ONE (20:09)
[2019-06-21] MEDS ORDERED: SODIUM CHLORIDE 0.9% 100 ML ONE (20:09)
[2019-06-21] MEDS ORDERED: LORazepam 2 MG/ML VIAL IVP ONE (20:30)
[2019-06-21] MEDS ORDERED: ACETAMINOPHEN 325 MG TABLET PO PRN (21:30)
[2019-06-21] MEDS ORDERED: ONDANSETRON HCL 4 MG/2 ML VIAL IVP PRN (21:30)
[2019-06-21] MEDS ORDERED: NOREPINEPHRINE 4 MG/D5%-WATER 250 ML IV STA ×2 (23:43→23:51)
[2019-06-22] MEDS ORDERED: BISACODYL 10 MG RECTAL RECTAL SUPPOSITORY PR PRN (02:30)
[2019-06-22] MEDS ORDERED: LACTULOSE 200 GM/300 ML RECTAL SOLUTION PR ONE (02:30)
[2019-06-22] MEDS ORDERED: MORPHINE SULFATE 2 MG/ML SYRINGE IVP PRN (02:30)
[2019-06-22] MEDS ORDERED: ONDANSETRON HCL 4 MG/2 ML VIAL IVP PRN (02:30)
[2019-06-22] MEDS ORDERED: ACETAMINOPHEN 325 MG TABLET PO PRN (02:30)
[2019-06-22] MEDS ORDERED: ALBUTEROL SULFATE 2.5 MG/0.5 ML NEB SOLUTION NEB PRN (02:30)
[2019-06-22] MEDS ORDERED: IPRATROPIUM BROMIDE 0.5 MG/2.5 ML NEB SOLUTION NEB PRN (02:30)
[2019-06-22] MEDS ORDERED: ZOLPIDEM TARTRATE 5 MG TABLET PO PRN (02:30)
[2019-06-22] MEDS ORDERED: MAGNESIUM HYDROXIDE SUSPENSION 30 ML UDCUP PO PRN (02:30)
[2019-06-22 03:03] LABS: ANION GAP 4 mmol/L (8-16); CALCIUM, TOTAL 7.7 mg/dL (8.8-10.5); CARBON DIOXIDE 27 mmol/L (22-29); CHLORIDE 108 mmol/L (98-107); GLOMERULAR FILTR. RATE CALC > 60 mL/min (>60); GLUCOSE,RANDOM 69 mg/dL (70-110); POTASSIUM 4.4 mmol/L (3.5-5.1); SODIUM SERUM 139 mmol/L (136-145); UREA NITROGEN, BLOOD 13 mg/dL (7-18)
[2019-06-22 03:13] LABS: TROPONIN I 0.09 ng/mL (0.00-0.05)
[2019-06-22 03:20] LABS: BASOPHILS % (AUTO) 0.1 % (0.0-2.0); EOSINOPHILS % (AUTO) 0.8 % (1.0-6.0); HEMATOCRIT 33.1 % (41-53); HEMOGLOBIN 11.1 g/dL (13.5-17.5); LYMPHOCYTES # (AUTO) 0.4 K/uL (1.0-4.8); LYMPHOCYTES % (AUTO) 24.4 % (22.0-44.0); MEAN CORPUSCULAR HEMOGLOBIN 30.1 pg (26.0-34.0); MEAN CORPUSCULAR HGB CONC 33.7 G/dL (31.0-37.0); MEAN CORPUSCULAR VOLUME 89 fL (80-100); MONOCYTES # (AUTO) 0.2 K/uL (0.1-1.0); MONOCYTES % (AUTO) 10.1 % (2.0-9.0); NEUTROPHILS # (AUTO) 1.1 K/uL (1.8-7.7); NEUTROPHILS % (AUTO) 64.6 % (40.0-70.0); PLATELET COUNT (AUTO) 95 K/uL (150-450); RED CELL DISTRIBUTION WIDTH 14.9 % (11.5-14.5)
[2019-06-22 03:23] LABS: INR 1.2 (0.9-1.1); PROTHROMBIN TIME 12.3 SEC (9.4-11.6)
[2019-06-22 03:28] LABS: ALANINE AMINOTRANSFERASE 58 U/L (12-78); ALBUMIN 2.8 g/dL (3.4-5.0); ALKALINE PHOSPHATASE 55 U/L (46-116); ASPARTATE AMINOTRANSFERASE 66 U/L (15-37); BILIRUBIN,TOTAL 0.4 mg/dL (0.1-1.0); CREATINE KINASE, TOTAL ONLY 670 U/L (39-308); THYROID STIMULATING HORMONE 1.37 uIU/mL (0.36-3.74); TOTAL PROTEIN, SERUM 6.3 g/dL (6.4-8.2)
[2019-06-22] MEDS ORDERED: DEXTROSE 50%-WATER 25 GM/50 ML SYRINGE IVP ONE ×2 (03:42→04:00)
[2019-06-22 03:46] LABS: PLATELET MORPHOLOGY COMMENT GIANT PLTS PRESENT
[2019-06-22 03:53] LABS: GLUCOSE,POINT OF CARE 59 MG/DL (70-110)
[2019-06-22 05:01] LABS: GLUCOSE,POINT OF CARE 141 MG/DL (70-110)
[2019-06-22] MEDS: HEPARIN SODIUM,PORCINE 5,000 UNITS/ML VIAL SQ SCH ×3 (07:45→23:27)
[2019-06-22] MEDS: DOCUSATE SODIUM 100 MG CAPSULE PO SCH ×2 (08:06→20:49)
[2019-06-22 09:39] LABS: BASOPHILS % (AUTO) 0.1 % (0.0-2.0); EOSINOPHILS % (AUTO) 0.1 % (1.0-6.0); HEMATOCRIT 32.6 % (41-53); LYMPHOCYTES # (AUTO) 0.3 K/uL (1.0-4.8); LYMPHOCYTES % (AUTO) 9.8 % (22.0-44.0); MEAN CORPUSCULAR HEMOGLOBIN 30.4 pg (26.0-34.0); MEAN CORPUSCULAR HGB CONC 33.9 G/dL (31.0-37.0); MEAN CORPUSCULAR VOLUME 90 fL (80-100); MONOCYTES # (AUTO) 0.5 K/uL (0.1-1.0); MONOCYTES % (AUTO) 18.5 % (2.0-9.0); NEUTROPHILS # (AUTO) 2.1 K/uL (1.8-7.7); NEUTROPHILS % (AUTO) 71.5 % (40.0-70.0); PLATELET COUNT (AUTO) 89 K/uL (150-450); RED BLOOD CELL COUNT(AUTO) 3.63 MIL/uL (4.50-5.90); RED CELL DISTRIBUTION WIDTH 15.3 % (11.5-14.5)
[2019-06-22 09:47] LABS: ANION GAP 7 mmol/L (8-16); CALCIUM, TOTAL 7.5 mg/dL (8.8-10.5); CARBON DIOXIDE 23 mmol/L (22-29); CHLORIDE 112 mmol/L (98-107); CREATININE 1.07 mg/dL (0.60-1.30); GLOMERULAR FILTR. RATE CALC > 60 mL/min (>60); GLUCOSE,RANDOM 89 mg/dL (70-110); POTASSIUM 4.6 mmol/L (3.5-5.1); SODIUM SERUM 142 mmol/L (136-145); UREA NITROGEN, BLOOD 11 mg/dL (7-18)
[2019-06-22 09:47] LABS: ABG A-A DIFF O2 62.7 mmHg (10-20.0); ABG BASE EXCESS -2.6 mmol/L (-2.0-3.0); ABG CARBOXYHEMOGLOBIN 0.4 % (0.0-1.5); ABG HCO3 22.7 mmol/L (22.0-26.0); ABG METHEMOGLOBIN 0.3 % (0.0-1.5); ABG OXYGEN CONTENT 16.2 mL/dL (15.0-23.0); ABG OXYGEN SATURATION 97.4 % (95.0-98.0); ABG OXYHEMOGLOBIN 96.7 % (94.0-100.0); ABG PCO2 37 mmHg (35-45); ABG TOTAL HEMOGLOBIN 11.8 G/dL (12.0-18.0); PO2, ARTERIAL BG 93.8 mmHg (79.0-87.0); SOURCE, BLOOD GAS ARTERIAL; TEMPERATURE, FAHRENHEIT, BG 98.5 FAHREN (96.0-98.6)
[2019-06-22 09:48] LABS: O2 DEVICE,BLOOD GAS CANNULA (ROOM AIR); SITE, BLOOD GAS RT RADIAL
[2019-06-22 09:54] LABS: ALANINE AMINOTRANSFERASE 58 U/L (12-78); ALBUMIN 2.6 g/dL (3.4-5.0); ALKALINE PHOSPHATASE 56 U/L (46-116); ASPARTATE AMINOTRANSFERASE 65 U/L (15-37); BILIRUBIN,TOTAL 0.4 mg/dL (0.1-1.0); TOTAL PROTEIN, SERUM 6.1 g/dL (6.4-8.2)
[2019-06-22 10:51] LABS: GLUCOSE,POINT OF CARE 82 MG/DL (70-110)
[2019-06-22] MEDS ORDERED: NOREPINEPHRINE 4 MG/D5%-WATER 250 ML IV ONE (12:32)
[2019-06-22] MEDS ORDERED: PHENYLEPHRINE 200 MG/D5%-WATER 250 ML IV PRN (12:32)
[2019-06-22] MEDS ORDERED: DEXTROSE 5%-0.45% SODIUM CHL 1,000 ML IV ONE (13:15)
[2019-06-22 13:37] LABS: INFLUENZA TYPE A NEGATIVE FOR TYPE A (NEGATIVE); INFLUENZA TYPE B NEGATIVE FOR TYPE B (NEGATIVE)
[2019-06-22 20:00] VITALS: BP 120/77
[2019-06-23] VITALS: BP 104/59
[2019-06-23] MEDS: NOREPINEPHRINE 4 MG/D5%-WATER 250 ML IV PRN ×2 (00:06→13:29)
[2019-06-23] MEDS ORDERED: VANCOMYCIN HCL 1.25 GM in DEXTROSE 5%-WATER 250 ML IV ONE (00:45)
[2019-06-23 04:00] VITALS: BP 116/52
[2019-06-23 05:06] LABS: BASOPHILS % (AUTO) 0.1 % (0.0-2.0); EOSINOPHILS % (AUTO) 0.1 % (1.0-6.0); HEMATOCRIT 33.9 % (41-53); HEMOGLOBIN 11.5 g/dL (13.5-17.5); LYMPHOCYTES # (AUTO) 0.5 K/uL (1.0-4.8); LYMPHOCYTES % (AUTO) 14.9 % (22.0-44.0); MEAN CORPUSCULAR HEMOGLOBIN 30.4 pg (26.0-34.0); MEAN CORPUSCULAR HGB CONC 33.8 G/dL (31.0-37.0); MEAN CORPUSCULAR VOLUME 90 fL (80-100); MONOCYTES # (AUTO) 0.8 K/uL (0.1-1.0); NEUTROPHILS # (AUTO) 2.2 K/uL (1.8-7.7); NEUTROPHILS % (AUTO) 61.9 % (40.0-70.0); PLATELET COUNT (AUTO) 73 K/uL (150-450); RED BLOOD CELL COUNT(AUTO) 3.77 MIL/uL (4.50-5.90); RED CELL DISTRIBUTION WIDTH 15.3 % (11.5-14.5)
[2019-06-23 05:19] LABS: ALANINE AMINOTRANSFERASE 56 U/L (12-78); ALBUMIN 2.4 g/dL (3.4-5.0); ALKALINE PHOSPHATASE 55 U/L (46-116); ANION GAP 3 mmol/L (8-16); ASPARTATE AMINOTRANSFERASE 55 U/L (15-37); BILIRUBIN,TOTAL 0.5 mg/dL (0.1-1.0); CALCIUM, TOTAL 8.2 mg/dL (8.8-10.5); CARBON DIOXIDE 28 mmol/L (22-29); CHLORIDE 108 mmol/L (98-107); CREATININE 0.91 mg/dL (0.60-1.30); GLOMERULAR FILTR. RATE CALC > 60 mL/min (>60); GLUCOSE,RANDOM 119 mg/dL (70-110); PHOSPHORUS 2.1 mg/dL (2.5-4.9); POTASSIUM 3.9 mmol/L (3.5-5.1); SODIUM SERUM 139 mmol/L (136-145); UREA NITROGEN, BLOOD 8 mg/dL (7-18)
[2019-06-23 05:23] LABS: PLATELET MORPHOLOGY COMMENT GIANT PLTS PRESENT
[2019-06-23 08:00] VITALS: BP 126/64
[2019-06-23] MEDS ORDERED: VANCOMYCIN HCL 1 GM/D5% WATER 200 ML IV ONE (08:00)
[2019-06-23] MEDS: HEPARIN SODIUM,PORCINE 5,000 UNITS/ML VIAL SQ SCH ×4 (08:00→23:41)
[2019-06-23] MEDS: DEXTROSE 5%-0.45% SODIUM CHL 1,000 ML IV SCH ×2 (08:17→23:41)
[2019-06-23] MEDS: DOCUSATE SODIUM 100 MG CAPSULE PO SCH ×3 (08:18→20:32)
[2019-06-23 12:00] VITALS: BP 119/65
[2019-06-23 16:00] VITALS: BP 121/72
[2019-06-23] MEDS: VANCOMYCIN HCL 1.25 GM in DEXTROSE 5%-WATER 250 ML IV SCH (18:44)
[2019-06-23] MEDS ORDERED: MAGNESIUM SULFATE 2 GM/WATER 50 ML IV ONE (19:45)
[2019-06-23 20:00] VITALS: BP 110/79
[2019-06-24] VITALS: BP 107/58
[2019-06-24 04:00] VITALS: BP 121/75
[2019-06-24 05:42] LABS: BASOPHILS % (AUTO) 0.2 % (0.0-2.0); EOSINOPHILS % (AUTO) 0.3 % (1.0-6.0); HEMATOCRIT 35.2 % (41-53); HEMOGLOBIN 11.8 g/dL (13.5-17.5); LYMPHOCYTES # (AUTO) 0.8 K/uL (1.0-4.8); LYMPHOCYTES % (AUTO) 21.9 % (22.0-44.0); MEAN CORPUSCULAR HEMOGLOBIN 29.9 pg (26.0-34.0); MEAN CORPUSCULAR HGB CONC 33.6 G/dL (31.0-37.0); MEAN CORPUSCULAR VOLUME 89 fL (80-100); MONOCYTES # (AUTO) 0.7 K/uL (0.1-1.0); MONOCYTES % (AUTO) 20.2 % (2.0-9.0); NEUTROPHILS % (AUTO) 57.4 % (40.0-70.0); PLATELET COUNT (AUTO) 70 K/uL (150-450); RED BLOOD CELL COUNT(AUTO) 3.97 MIL/uL (4.50-5.90); RED CELL DISTRIBUTION WIDTH 15.3 % (11.5-14.5)
[2019-06-24 05:54] LABS: ALANINE AMINOTRANSFERASE 61 U/L (12-78); ALBUMIN 2.3 g/dL (3.4-5.0); ALKALINE PHOSPHATASE 61 U/L (46-116); ANION GAP 4 mmol/L (8-16); ASPARTATE AMINOTRANSFERASE 51 U/L (15-37); BILIRUBIN,TOTAL 0.6 mg/dL (0.1-1.0); CALCIUM, TOTAL 8.6 mg/dL (8.8-10.5); CARBON DIOXIDE 30 mmol/L (22-29); CHLORIDE 110 mmol/L (98-107); CREATININE 0.91 mg/dL (0.60-1.30); GLOMERULAR FILTR. RATE CALC > 60 mL/min (>60); GLUCOSE,RANDOM 89 mg/dL (70-110); PHOSPHORUS 2.1 mg/dL (2.5-4.9); POTASSIUM 3.8 mmol/L (3.5-5.1); SODIUM SERUM 144 mmol/L (136-145); TOTAL PROTEIN, SERUM 6.1 g/dL (6.4-8.2); UREA NITROGEN, BLOOD 8 mg/dL (7-18)
[2019-06-24] MEDS: VANCOMYCIN HCL 1.25 GM in DEXTROSE 5%-WATER 250 ML IV SCH ×2 (06:15→18:22)
[2019-06-24 08:00] VITALS: BP 91/59
[2019-06-24] MEDS: HEPARIN SODIUM,PORCINE 5,000 UNITS/ML VIAL SQ SCH ×3 (09:00→23:32)
[2019-06-24] MEDS: DOCUSATE SODIUM 100 MG CAPSULE PO SCH ×2 (09:00→21:40)
[2019-06-24 12:00] VITALS: BP 111/60
[2019-06-24] MEDS: NOREPINEPHRINE 4 MG/D5%-WATER 250 ML IV PRN (12:35)
[2019-06-24 16:00] VITALS: BP 123/65
[2019-06-24] MEDS: DEXTROSE 5%-0.45% SODIUM CHL 1,000 ML IV SCH (18:20)
[2019-06-24 20:00] VITALS: BP 91/50
[2019-06-25] VITALS (7 sets, daily range): BP systolic 96–129; BP diastolic 50–79
[2019-06-25 05:29] LABS: BASOPHILS % (AUTO) 0.3 % (0.0-2.0); EOSINOPHILS % (AUTO) 0.8 % (1.0-6.0); HEMATOCRIT 35.3 % (41-53); HEMOGLOBIN 11.9 g/dL (13.5-17.5); LYMPHOCYTES # (AUTO) 1.1 K/uL (1.0-4.8); LYMPHOCYTES % (AUTO) 39.9 % (22.0-44.0); MEAN CORPUSCULAR HEMOGLOBIN 29.9 pg (26.0-34.0); MEAN CORPUSCULAR HGB CONC 33.7 G/dL (31.0-37.0); MEAN CORPUSCULAR VOLUME 89 fL (80-100); MONOCYTES # (AUTO) 0.7 K/uL (0.1-1.0); MONOCYTES % (AUTO) 23.3 % (2.0-9.0); NEUTROPHILS % (AUTO) 35.7 % (40.0-70.0); PLATELET COUNT (AUTO) 80 K/uL (150-450); RED BLOOD CELL COUNT(AUTO) 3.97 MIL/uL (4.50-5.90); RED CELL DISTRIBUTION WIDTH 15.2 % (11.5-14.5)
[2019-06-25 05:46] LABS: ALANINE AMINOTRANSFERASE 62 U/L (12-78); ALBUMIN 2.3 g/dL (3.4-5.0); ALKALINE PHOSPHATASE 63 U/L (46-116); ANION GAP 4 mmol/L (8-16); ASPARTATE AMINOTRANSFERASE 44 U/L (15-37); BILIRUBIN,TOTAL 0.6 mg/dL (0.1-1.0); CARBON DIOXIDE 26 mmol/L (22-29); CHLORIDE 110 mmol/L (98-107); GLOMERULAR FILTR. RATE CALC > 60 mL/min (>60); GLUCOSE,RANDOM 99 mg/dL (70-110); SODIUM SERUM 140 mmol/L (136-145); TOTAL PROTEIN, SERUM 6.5 g/dL (6.4-8.2); UREA NITROGEN, BLOOD 7 mg/dL (7-18); VANCOMYCIN,RANDOM 22.3 mcg/mL (25.0-50.0)
[2019-06-25] MEDS: VANCOMYCIN HCL 1.25 GM in DEXTROSE 5%-WATER 250 ML IV SCH (06:09)
[2019-06-25] MEDS ORDERED: VANCOMYCIN HCL 1 GM/D5% WATER 200 ML IV SCH (07:00)
[2019-06-25] MEDS: DEXTROSE 5%-0.45% SODIUM CHL 1,000 ML IV SCH (08:39)
[2019-06-25] MEDS: HEPARIN SODIUM,PORCINE 5,000 UNITS/ML VIAL SQ SCH ×2 (08:39→16:06)
[2019-06-25] MEDS: DOCUSATE SODIUM 100 MG CAPSULE PO SCH ×2 (08:39→20:48)
[2019-06-26] MEDS: HEPARIN SODIUM,PORCINE 5,000 UNITS/ML VIAL SQ SCH ×3 (00:27→17:18)
[2019-06-26] MEDS: DEXTROSE 5%-0.45% SODIUM CHL 1,000 ML IV SCH ×2 (00:27→14:48)
[2019-06-26 03:49] VITALS: BP 126/84
[2019-06-26 07:32] VITALS: BP 129/81
[2019-06-26 07:58] LABS: BASOPHILS % (AUTO) 0.2 % (0.0-2.0); EOSINOPHILS % (AUTO) 0.4 % (1.0-6.0); HEMATOCRIT 33.5 % (41-53); HEMOGLOBIN 11.3 g/dL (13.5-17.5); LYMPHOCYTES # (AUTO) 1.4 K/uL (1.0-4.8); LYMPHOCYTES % (AUTO) 43.1 % (22.0-44.0); MEAN CORPUSCULAR HEMOGLOBIN 29.9 pg (26.0-34.0); MEAN CORPUSCULAR HGB CONC 33.8 G/dL (31.0-37.0); MEAN CORPUSCULAR VOLUME 89 fL (80-100); MONOCYTES # (AUTO) 0.6 K/uL (0.1-1.0); MONOCYTES % (AUTO) 19.9 % (2.0-9.0); NEUTROPHILS # (AUTO) 1.1 K/uL (1.8-7.7); NEUTROPHILS % (AUTO) 36.4 % (40.0-70.0); PLATELET COUNT (AUTO) 109 K/uL (150-450); RED BLOOD CELL COUNT(AUTO) 3.78 MIL/uL (4.50-5.90); RED CELL DISTRIBUTION WIDTH 15.1 % (11.5-14.5)
[2019-06-26] MEDS ORDERED: VANCOMYCIN HCL 1 GM/D5% WATER 200 ML IV SCH (08:00)
[2019-06-26] MEDS: DOCUSATE SODIUM 100 MG CAPSULE PO SCH ×2 (08:20→21:20)
[2019-06-26 08:34] LABS: ALANINE AMINOTRANSFERASE 52 U/L (12-78); ALBUMIN 2.2 g/dL (3.4-5.0); ALKALINE PHOSPHATASE 62 U/L (46-116); ANION GAP 6 mmol/L (8-16); ASPARTATE AMINOTRANSFERASE 31 U/L (15-37); BILIRUBIN,TOTAL 0.5 mg/dL (0.1-1.0); CARBON DIOXIDE 26 mmol/L (22-29); CHLORIDE 110 mmol/L (98-107); CREATININE 1.14 mg/dL (0.60-1.30); GLOMERULAR FILTR. RATE CALC > 60 mL/min (>60); GLUCOSE,RANDOM 106 mg/dL (70-110); SODIUM SERUM 142 mmol/L (136-145); TOTAL PROTEIN, SERUM 6.5 g/dL (6.4-8.2); UREA NITROGEN, BLOOD 9 mg/dL (7-18); VANCOMYCIN,RANDOM 13.5 mcg/mL (25.0-50.0)
[2019-06-26 11:25] VITALS: BP 113/69
[2019-06-26] MEDS: CeFAZolin 2 GM/DEXTROSE 50 ML IV SCH ×2 (14:47→21:21)
[2019-06-26 15:57] VITALS: BP 151/83
[2019-06-26 19:17] VITALS: BP 100/64
[2019-06-27 00:20] VITALS: BP 127/79
[2019-06-27] MEDS: HEPARIN SODIUM,PORCINE 5,000 UNITS/ML VIAL SQ SCH ×3 (02:35→16:00)
[2019-06-27] MEDS: DEXTROSE 5%-0.45% SODIUM CHL 1,000 ML IV SCH (02:36)
[2019-06-27 05:22] VITALS: BP 134/85
[2019-06-27] MEDS: CeFAZolin 2 GM/DEXTROSE 50 ML IV SCH ×3 (05:50→21:42)
[2019-06-27 06:19] LABS: BASOPHILS % (AUTO) 0.5 % (0.0-2.0); EOSINOPHILS % (AUTO) 2.3 % (1.0-6.0); HEMATOCRIT 36.4 % (41-53); HEMOGLOBIN 12.2 g/dL (13.5-17.5); LYMPHOCYTES # (AUTO) 1.4 K/uL (1.0-4.8); LYMPHOCYTES % (AUTO) 39.4 % (22.0-44.0); MEAN CORPUSCULAR HEMOGLOBIN 29.7 pg (26.0-34.0); MEAN CORPUSCULAR HGB CONC 33.6 G/dL (31.0-37.0); MEAN CORPUSCULAR VOLUME 89 fL (80-100); MONOCYTES # (AUTO) 0.5 K/uL (0.1-1.0); NEUTROPHILS # (AUTO) 1.6 K/uL (1.8-7.7); NEUTROPHILS % (AUTO) 43.8 % (40.0-70.0); PLATELET COUNT (AUTO) 134 K/uL (150-450); RED BLOOD CELL COUNT(AUTO) 4.12 MIL/uL (4.50-5.90); RED CELL DISTRIBUTION WIDTH 15.1 % (11.5-14.5)
[2019-06-27 06:51] LABS: ALANINE AMINOTRANSFERASE 45 U/L (12-78); ALBUMIN 2.6 g/dL (3.4-5.0); ALKALINE PHOSPHATASE 73 U/L (46-116); ANION GAP 6 mmol/L (8-16); ASPARTATE AMINOTRANSFERASE 32 U/L (15-37); BILIRUBIN,TOTAL 0.5 mg/dL (0.1-1.0); CALCIUM, TOTAL 9.2 mg/dL (8.8-10.5); CARBON DIOXIDE 27 mmol/L (22-29); CHLORIDE 109 mmol/L (98-107); CREATININE 1.18 mg/dL (0.60-1.30); GLOMERULAR FILTR. RATE CALC > 60 mL/min (>60); GLUCOSE,RANDOM 101 mg/dL (70-110); PHOSPHORUS 4.1 mg/dL (2.5-4.9); POTASSIUM 3.9 mmol/L (3.5-5.1); SODIUM SERUM 142 mmol/L (136-145); TOTAL PROTEIN, SERUM 7.2 g/dL (6.4-8.2); UREA NITROGEN, BLOOD 8 mg/dL (7-18)
[2019-06-27 08:20] VITALS: BP_SYST 130; BP_SYST 191; BP_DIAS 76; BP_DIAS 82
[2019-06-27] MEDS: DOCUSATE SODIUM 100 MG CAPSULE PO SCH ×2 (09:00→21:00)
[2019-06-27 11:37] VITALS: BP 144/64
[2019-06-27 15:47] VITALS: BP 146/72
[2019-06-27 20:09] VITALS: BP 107/67
[2019-06-28 00:17] VITALS: BP 122/96
[2019-06-28] MEDS: HEPARIN SODIUM,PORCINE 5,000 UNITS/ML VIAL SQ SCH ×3 (02:26→15:31)
[2019-06-28 04:39] VITALS: BP 100/61
[2019-06-28] MEDS: CeFAZolin 2 GM/DEXTROSE 50 ML IV SCH ×3 (05:24→21:13)
[2019-06-28 06:36] LABS: BASOPHILS % (AUTO) 0.3 % (0.0-2.0); EOSINOPHILS % (AUTO) 2.1 % (1.0-6.0); HEMATOCRIT 34.3 % (41-53); HEMOGLOBIN 11.6 g/dL (13.5-17.5); LYMPHOCYTES # (AUTO) 1.5 K/uL (1.0-4.8); LYMPHOCYTES % (AUTO) 32.3 % (22.0-44.0); MEAN CORPUSCULAR HEMOGLOBIN 29.9 pg (26.0-34.0); MEAN CORPUSCULAR HGB CONC 33.8 G/dL (31.0-37.0); MEAN CORPUSCULAR VOLUME 89 fL (80-100); MONOCYTES # (AUTO) 0.7 K/uL (0.1-1.0); MONOCYTES % (AUTO) 15.6 % (2.0-9.0); NEUTROPHILS # (AUTO) 2.3 K/uL (1.8-7.7); NEUTROPHILS % (AUTO) 49.7 % (40.0-70.0); PLATELET COUNT (AUTO) 159 K/uL (150-450); RED BLOOD CELL COUNT(AUTO) 3.88 MIL/uL (4.50-5.90); RED CELL DISTRIBUTION WIDTH 14.9 % (11.5-14.5)
[2019-06-28 06:59] LABS: ALANINE AMINOTRANSFERASE 42 U/L (12-78); ALBUMIN 2.5 g/dL (3.4-5.0); ALKALINE PHOSPHATASE 71 U/L (46-116); ANION GAP 8 mmol/L (8-16); ASPARTATE AMINOTRANSFERASE 36 U/L (15-37); BILIRUBIN,TOTAL 0.4 mg/dL (0.1-1.0); CALCIUM, TOTAL 9.2 mg/dL (8.8-10.5); CARBON DIOXIDE 26 mmol/L (22-29); CHLORIDE 108 mmol/L (98-107); CREATININE 1.15 mg/dL (0.60-1.30); GLOMERULAR FILTR. RATE CALC > 60 mL/min (>60); GLUCOSE,RANDOM 98 mg/dL (70-110); SODIUM SERUM 142 mmol/L (136-145); TOTAL PROTEIN, SERUM 6.9 g/dL (6.4-8.2); UREA NITROGEN, BLOOD 13 mg/dL (7-18)
[2019-06-28 07:36] VITALS: BP 151/78
[2019-06-28] MEDS ORDERED: SODIUM CHLORIDE 0.9% 2,000 ML ONE (07:47)
[2019-06-28] MEDS: DEXTROSE 5%-0.45% SODIUM CHL 1,000 ML IV SCH (07:58)
[2019-06-28] MEDS: DOCUSATE SODIUM 100 MG CAPSULE PO SCH ×2 (07:59→19:59)
[2019-06-28 11:45] VITALS: BP 109/62
[2019-06-28] MEDS ORDERED: MAGNESIUM OXIDE 400 MG TABLET PO ONE (12:15)
[2019-06-28 16:39] VITALS: BP 148/75
[2019-06-28] MEDS: HALOPERIDOL 5 MG TABLET PO SCH (19:59)
[2019-06-28 21:24] VITALS: BP 108/63
[2019-06-29 00:31] VITALS: BP 144/79
[2019-06-29] MEDS: HEPARIN SODIUM,PORCINE 5,000 UNITS/ML VIAL SQ SCH ×2 (00:41→11:25)
[2019-06-29] MEDS: DEXTROSE 5%-0.45% SODIUM CHL 1,000 ML IV SCH ×2 (01:21→21:00)
[2019-06-29 04:50] VITALS: BP 125/86
[2019-06-29] MEDS: CeFAZolin 2 GM/DEXTROSE 50 ML IV SCH ×2 (05:48→22:00)
[2019-06-29 06:39] LABS: BASOPHILS % (AUTO) 0.3 % (0.0-2.0); EOSINOPHILS % (AUTO) 4.3 % (1.0-6.0); HEMATOCRIT 35.9 % (41-53); LYMPHOCYTES # (AUTO) 1.6 K/uL (1.0-4.8); MEAN CORPUSCULAR HEMOGLOBIN 29.7 pg (26.0-34.0); MEAN CORPUSCULAR HGB CONC 33.4 G/dL (31.0-37.0); MEAN CORPUSCULAR VOLUME 89 fL (80-100); MONOCYTES # (AUTO) 0.9 K/uL (0.1-1.0); MONOCYTES % (AUTO) 17.5 % (2.0-9.0); NEUTROPHILS # (AUTO) 2.2 K/uL (1.8-7.7); NEUTROPHILS % (AUTO) 44.9 % (40.0-70.0); PLATELET COUNT (AUTO) 204 K/uL (150-450); RED BLOOD CELL COUNT(AUTO) 4.05 MIL/uL (4.50-5.90)
[2019-06-29 07:06] VITALS: BP 154/74
[2019-06-29 07:17] LABS: ALANINE AMINOTRANSFERASE 36 U/L (12-78); ALBUMIN 2.7 g/dL (3.4-5.0); ALKALINE PHOSPHATASE 75 U/L (46-116); ANION GAP 10 mmol/L (8-16); ASPARTATE AMINOTRANSFERASE 30 U/L (15-37); BILIRUBIN,TOTAL 0.5 mg/dL (0.1-1.0); CALCIUM, TOTAL 9.3 mg/dL (8.8-10.5); CARBON DIOXIDE 26 mmol/L (22-29); CHLORIDE 106 mmol/L (98-107); CREATININE 1.07 mg/dL (0.60-1.30); GLOMERULAR FILTR. RATE CALC > 60 mL/min (>60); GLUCOSE,RANDOM 97 mg/dL (70-110); POTASSIUM 4.4 mmol/L (3.5-5.1); SODIUM SERUM 142 mmol/L (136-145); TOTAL PROTEIN, SERUM 7.4 g/dL (6.4-8.2); UREA NITROGEN, BLOOD 9 mg/dL (7-18)
[2019-06-29] MEDS: DOCUSATE SODIUM 100 MG CAPSULE PO SCH ×2 (11:24→20:07)
[2019-06-29] MEDS: HYDROCODONE/ACETAMINOPHEN 5-325 MG TABLET PO PRN ×2 (11:25→15:28)
[2019-06-29] MEDS: HALOPERIDOL 5 MG TABLET PO SCH ×2 (11:25→20:07)
[2019-06-29 11:36] VITALS: BP 134/81
[2019-06-29 15:40] VITALS: BP 93/58
[2019-06-29] MEDS ORDERED: HALO5TAB23 PO ×2 (17:56→17:57)
[2019-06-29 20:46] VITALS: BP 134/69
[2019-06-30] VITALS: BP 141/79
[2019-06-30] MEDS: DEXTROSE 5%-0.45% SODIUM CHL 1,000 ML IV SCH ×2 (01:44→11:05)
[2019-06-30 03:52] VITALS: BP 137/75
[2019-06-30] MEDS: CeFAZolin 2 GM/DEXTROSE 50 ML IV SCH ×2 (05:39→13:13)
[2019-06-30] MEDS: DOCUSATE SODIUM 100 MG CAPSULE PO SCH (09:30)
[2019-06-30] MEDS: HEPARIN SODIUM,PORCINE 5,000 UNITS/ML VIAL SQ SCH ×3 (09:30→16:00)
[2019-06-30] MEDS: HALOPERIDOL 5 MG TABLET PO SCH (09:30)
[2019-06-30 11:04] VITALS: BP 123/71
[2019-06-30 15:38] VITALS: BP 113/59
[2019-06-30] MEDS ORDERED: DIVA500T52 PO (20:05)
[2019-06-30] MEDS ORDERED: OLAN10TA3 PO (20:05)
[2019-06-30] MEDS ORDERED: LISI-662 PO (20:05)
== END 2019-06-30 17:15 | disposition home health service (06) | DRG 871 ==
LOC: EMS 18:11 → ICU 06-22 17:39 → 5S 06-25 17:40
PROVIDERS: ADMIT Hospitalist; ATTEND Hospitalist
PROC: 05H Upper Veins, Insertion (ICD-10-PCS; principal; 2019-06-23)
PROC: B54MZZA Ultrasonography of Right Upper Extremity Veins, Guidance (ICD-10-PCS; 2019-06-23)
DX: A41.9 Sepsis, unspecified organism (principal); G92 Toxic encephalopathy; R65.21 Severe sepsis with septic shock; M62.82 Rhabdomyolysis; D61.818 Other pancytopenia; F20.9 Schizophrenia, unspecified; D69.6 Thrombocytopenia, unspecified; J44.9 Chronic obstructive pulmonary disease, unspecified; I10 Essential (primary) hypertension; K59.00 Constipation, unspecified; B96.89 Other specified bacterial agents as the cause of diseases classified elsewhere; D64.9 Anemia, unspecified; B95.7 Other staphylococcus as the cause of diseases classified elsewhere; L40.9 Psoriasis, unspecified; F17.210 Nicotine dependence, cigarettes, uncomplicated; R33.9 Retention of urine, unspecified; R68.0 Hypothermia, not associated with low environmental temperature; Z79.899 Other long term (current) drug therapy
CPT/HCPCS: 36245; 36569; 36600; 51702; 70450; 74177; 76937; 82805; 83605; 83735; 84100; 84145; 84443; 85379; 87040; 87081; 87205; 87804; 92523; 92526; 93005; 93306; 93971; 97116; 97162; 97165; 97530; 97535; 99291; G0378; G0480; J0690; J1644; J2060; J2370; J3370; J3475; J3490; J7030; J7050; J7060

== ENCOUNTER 2019-06-30 18:49 | Inpatient (IN) | payer MEDICARE, OTHER ==
[~2019-06-30] VITALS: Ht 193 cm; Wt 70.8 kg
[~2019-06-30 18:49] MED LIST changes: -DIVA500T52 PO; +HALO5TAB23 PO; -LISI-662 PO; -OLAN10TA3 PO
[2019-06-30 19:59] LABS: GLUCOSE,POINT OF CARE 93 MG/DL (70-110)
[2019-06-30] MEDS ORDERED: DIVA500T52 PO (20:05)
[2019-06-30] MEDS ORDERED: OLAN10TA3 PO (20:05)
[2019-06-30] MEDS ORDERED: LISI-662 PO (20:05)
[2019-06-30 20:07] LABS: BASOPHILS % (AUTO) 0.5 % (0.0-2.0); EOSINOPHILS % (AUTO) 2.7 % (1.0-6.0); HEMATOCRIT 37.7 % (41-53); HEMOGLOBIN 12.5 g/dL (13.5-17.5); LYMPHOCYTES # (AUTO) 1.7 K/uL (1.0-4.8); LYMPHOCYTES % (AUTO) 32.7 % (22.0-44.0); MEAN CORPUSCULAR HEMOGLOBIN 29.8 pg (26.0-34.0); MEAN CORPUSCULAR HGB CONC 33.2 G/dL (31.0-37.0); MEAN CORPUSCULAR VOLUME 90 fL (80-100); MONOCYTES # (AUTO) 0.6 K/uL (0.1-1.0); MONOCYTES % (AUTO) 11.6 % (2.0-9.0); NEUTROPHILS # (AUTO) 2.7 K/uL (1.8-7.7); NEUTROPHILS % (AUTO) 52.5 % (40.0-70.0); PLATELET COUNT (AUTO) 276 K/uL (150-450); RED CELL DISTRIBUTION WIDTH 14.8 % (11.5-14.5)
[2019-06-30 20:18] LABS: ANION GAP 5 mmol/L (8-16); CALCIUM, TOTAL 9.6 mg/dL (8.8-10.5); CARBON DIOXIDE 28 mmol/L (22-29); CHLORIDE 107 mmol/L (98-107); CREATININE 1.13 mg/dL (0.60-1.30); GLOMERULAR FILTR. RATE CALC > 60 mL/min (>60); GLUCOSE,RANDOM 105 mg/dL (70-110); POTASSIUM 4.2 mmol/L (3.5-5.1); SODIUM SERUM 140 mmol/L (136-145); UREA NITROGEN, BLOOD 11 mg/dL (7-18)
[2019-06-30 20:24] LABS: ALANINE AMINOTRANSFERASE 47 U/L (12-78); ALBUMIN 2.9 g/dL (3.4-5.0); ALKALINE PHOSPHATASE 85 U/L (46-116); ASPARTATE AMINOTRANSFERASE 45 U/L (15-37); BILIRUBIN,TOTAL 0.4 mg/dL (0.1-1.0); TOTAL PROTEIN, SERUM 8.1 g/dL (6.4-8.2)
[2019-06-30 20:26] LABS: TROPONIN I < 0.02 ng/mL (0.00-0.05)
[2019-06-30 20:36] LABS: AMMONIA < 10 umol/L (11-32)
[2019-06-30] MEDS ORDERED: ONDANSETRON HCL 4 MG/2 ML VIAL IVP PRN (20:45)
[2019-06-30] MEDS ORDERED: 0.9% SODIUM CHLORIDE 10 ML SYRINGE IVP PRN (20:45)
[2019-06-30] MEDS ORDERED: ACETAMINOPHEN 325 MG TABLET PO PRN (20:45)
[2019-06-30 23:00] VITALS: BP 129/68
[2019-07-01] MEDS ORDERED: 0.9% SODIUM CHLORIDE 10 ML SYRINGE IVP PRN (02:45)
[2019-07-01] MEDS ORDERED: OxyCODONE HCL/ACETAMINOPHEN 5-325 MG TABLET PO PRN ×2 (02:45)
[2019-07-01] MEDS: DOCUSATE SODIUM 100 MG CAPSULE PO SCH ×3 (03:12→20:47)
[2019-07-01] MEDS: HALOPERIDOL 5 MG TABLET PO SCH ×3 (03:12→20:46)
[2019-07-01 05:08] VITALS: BP 118/60
[2019-07-01 07:40] VITALS: BP 139/79
[2019-07-01 08:11] LABS: BASOPHILS % (AUTO) 0.4 % (0.0-2.0); EOSINOPHILS % (AUTO) 2.2 % (1.0-6.0); HEMATOCRIT 36.2 % (41-53); LYMPHOCYTES # (AUTO) 1.6 K/uL (1.0-4.8); LYMPHOCYTES % (AUTO) 35.4 % (22.0-44.0); MEAN CORPUSCULAR HEMOGLOBIN 29.4 pg (26.0-34.0); MEAN CORPUSCULAR HGB CONC 33.1 G/dL (31.0-37.0); MEAN CORPUSCULAR VOLUME 89 fL (80-100); MONOCYTES # (AUTO) 0.6 K/uL (0.1-1.0); MONOCYTES % (AUTO) 12.8 % (2.0-9.0); NEUTROPHILS # (AUTO) 2.2 K/uL (1.8-7.7); NEUTROPHILS % (AUTO) 49.2 % (40.0-70.0); PLATELET COUNT (AUTO) 281 K/uL (150-450); RED BLOOD CELL COUNT(AUTO) 4.07 MIL/uL (4.50-5.90); RED CELL DISTRIBUTION WIDTH 15.1 % (11.5-14.5)
[2019-07-01] MEDS: OLANZapine 10 MG TABLET PO SCH (08:20)
[2019-07-01] MEDS: LISINOPRIL 20 MG TABLET PO SCH (08:20)
[2019-07-01 08:33] LABS: ALANINE AMINOTRANSFERASE 50 U/L (12-78); ALBUMIN 2.7 g/dL (3.4-5.0); ALKALINE PHOSPHATASE 80 U/L (46-116); ANION GAP 5 mmol/L (8-16); ASPARTATE AMINOTRANSFERASE 52 U/L (15-37); BILIRUBIN,TOTAL 0.4 mg/dL (0.1-1.0); CALCIUM, TOTAL 9.1 mg/dL (8.8-10.5); CARBON DIOXIDE 29 mmol/L (22-29); CHLORIDE 108 mmol/L (98-107); CREATININE 1.07 mg/dL (0.60-1.30); GLOMERULAR FILTR. RATE CALC > 60 mL/min (>60); GLUCOSE,RANDOM 79 mg/dL (70-110); POTASSIUM 4.2 mmol/L (3.5-5.1); SODIUM SERUM 142 mmol/L (136-145); TOTAL PROTEIN, SERUM 7.6 g/dL (6.4-8.2); UREA NITROGEN, BLOOD 12 mg/dL (7-18)
[2019-07-01 16:19] VITALS: BP 134/69
[2019-07-01 19:00] VITALS: BP 86/50
[2019-07-01 19:31] VITALS: BP 96/56
[2019-07-01] MEDS ORDERED: SODIUM CHLORIDE 0.9% 250 ML IV ONE (20:15)
[2019-07-01] MEDS: DIVALPROEX SODIUM 500 MG ER TABLET PO SCH (20:46)
[2019-07-01 21:21] VITALS: BP 96/60
[2019-07-02 04:41] VITALS: BP 118/57
[2019-07-02 07:11] LABS: BASOPHILS % (AUTO) 0.5 % (0.0-2.0); EOSINOPHILS % (AUTO) 2.1 % (1.0-6.0); HEMATOCRIT 33.7 % (41-53); HEMOGLOBIN 11.3 g/dL (13.5-17.5); LYMPHOCYTES % (AUTO) 35.3 % (22.0-44.0); MEAN CORPUSCULAR HEMOGLOBIN 30.2 pg (26.0-34.0); MEAN CORPUSCULAR HGB CONC 33.7 G/dL (31.0-37.0); MEAN CORPUSCULAR VOLUME 90 fL (80-100); MONOCYTES # (AUTO) 0.7 K/uL (0.1-1.0); MONOCYTES % (AUTO) 12.2 % (2.0-9.0); NEUTROPHILS # (AUTO) 2.8 K/uL (1.8-7.7); NEUTROPHILS % (AUTO) 49.9 % (40.0-70.0); PLATELET COUNT (AUTO) 303 K/uL (150-450); RED BLOOD CELL COUNT(AUTO) 3.75 MIL/uL (4.50-5.90); RED CELL DISTRIBUTION WIDTH 14.9 % (11.5-14.5)
[2019-07-02 07:30] LABS: ANION GAP 6 mmol/L (8-16); CALCIUM, TOTAL 9.1 mg/dL (8.8-10.5); CARBON DIOXIDE 28 mmol/L (22-29); CHLORIDE 108 mmol/L (98-107); CREATININE 1.08 mg/dL (0.60-1.30); GLOMERULAR FILTR. RATE CALC > 60 mL/min (>60); GLUCOSE,RANDOM 91 mg/dL (70-110); POTASSIUM 5.1 mmol/L (3.5-5.1); SODIUM SERUM 142 mmol/L (136-145); UREA NITROGEN, BLOOD 15 mg/dL (7-18)
[2019-07-02 08:30] VITALS: BP 112/64
[2019-07-02] MEDS: OLANZapine 10 MG TABLET PO SCH (08:33)
[2019-07-02] MEDS: HALOPERIDOL 5 MG TABLET PO SCH ×2 (08:33→20:22)
[2019-07-02] MEDS: DOCUSATE SODIUM 100 MG CAPSULE PO SCH ×2 (08:33→20:22)
[2019-07-02] MEDS: LISINOPRIL 20 MG TABLET PO SCH (08:34)
[2019-07-02 15:31] VITALS: BP 116/68
[2019-07-02] MEDS: DIVALPROEX SODIUM 500 MG ER TABLET PO SCH (20:21)
[2019-07-02 21:05] VITALS: BP 117/66
[2019-07-03 00:25] VITALS: BP 119/76
[2019-07-03 07:14] LABS: BASOPHILS % (AUTO) 0.6 % (0.0-2.0); EOSINOPHILS % (AUTO) 3.2 % (1.0-6.0); HEMATOCRIT 36.3 % (41-53); HEMOGLOBIN 12.2 g/dL (13.5-17.5); LYMPHOCYTES % (AUTO) 38.4 % (22.0-44.0); MEAN CORPUSCULAR HGB CONC 33.6 G/dL (31.0-37.0); MEAN CORPUSCULAR VOLUME 90 fL (80-100); MONOCYTES # (AUTO) 0.4 K/uL (0.1-1.0); MONOCYTES % (AUTO) 8.3 % (2.0-9.0); NEUTROPHILS # (AUTO) 2.5 K/uL (1.8-7.7); NEUTROPHILS % (AUTO) 49.5 % (40.0-70.0); PLATELET COUNT (AUTO) 310 K/uL (150-450); RED BLOOD CELL COUNT(AUTO) 4.05 MIL/uL (4.50-5.90); RED CELL DISTRIBUTION WIDTH 14.8 % (11.5-14.5)
[2019-07-03 07:28] LABS: ANION GAP 5 mmol/L (8-16); CALCIUM, TOTAL 8.6 mg/dL (8.8-10.5); CARBON DIOXIDE 29 mmol/L (22-29); CHLORIDE 108 mmol/L (98-107); CREATININE 0.88 mg/dL (0.60-1.30); GLOMERULAR FILTR. RATE CALC > 60 mL/min (>60); GLUCOSE,RANDOM 86 mg/dL (70-110); POTASSIUM 4.8 mmol/L (3.5-5.1); SODIUM SERUM 142 mmol/L (136-145); UREA NITROGEN, BLOOD 16 mg/dL (7-18)
[2019-07-03 08:00] VITALS: BP 105/52
[2019-07-03] MEDS: DOCUSATE SODIUM 100 MG CAPSULE PO SCH ×3 (08:44→20:40)
[2019-07-03] MEDS: OLANZapine 10 MG TABLET PO SCH (08:45)
[2019-07-03] MEDS: HALOPERIDOL 5 MG TABLET PO SCH ×2 (08:45→20:38)
[2019-07-03] MEDS: LISINOPRIL 20 MG TABLET PO SCH (08:45)
[2019-07-03 12:17] VITALS: BP 108/70
[2019-07-03 16:40] VITALS: BP 112/75
[2019-07-03 19:35] VITALS: BP 99/60
[2019-07-03] MEDS: DIVALPROEX SODIUM 500 MG ER TABLET PO SCH (20:39)
[2019-07-03 23:27] VITALS: BP 111/58
[2019-07-04 04:57] VITALS: BP 112/67
[2019-07-04 07:13] LABS: BASOPHILS % (AUTO) 0.4 % (0.0-2.0); EOSINOPHILS % (AUTO) 3.3 % (1.0-6.0); HEMATOCRIT 34.2 % (41-53); HEMOGLOBIN 11.5 g/dL (13.5-17.5); LYMPHOCYTES # (AUTO) 1.9 K/uL (1.0-4.8); LYMPHOCYTES % (AUTO) 40.8 % (22.0-44.0); MEAN CORPUSCULAR HEMOGLOBIN 30.3 pg (26.0-34.0); MEAN CORPUSCULAR HGB CONC 33.7 G/dL (31.0-37.0); MEAN CORPUSCULAR VOLUME 90 fL (80-100); MONOCYTES # (AUTO) 0.3 K/uL (0.1-1.0); MONOCYTES % (AUTO) 6.6 % (2.0-9.0); NEUTROPHILS # (AUTO) 2.2 K/uL (1.8-7.7); NEUTROPHILS % (AUTO) 48.9 % (40.0-70.0); PLATELET COUNT (AUTO) 350 K/uL (150-450); RED CELL DISTRIBUTION WIDTH 14.8 % (11.5-14.5)
[2019-07-04 07:26] LABS: ANION GAP 5 mmol/L (8-16); CALCIUM, TOTAL 8.8 mg/dL (8.8-10.5); CARBON DIOXIDE 30 mmol/L (22-29); CHLORIDE 107 mmol/L (98-107); CREATININE 0.98 mg/dL (0.60-1.30); GLOMERULAR FILTR. RATE CALC > 60 mL/min (>60); GLUCOSE,RANDOM 69 mg/dL (70-110); POTASSIUM 4.7 mmol/L (3.5-5.1); SODIUM SERUM 142 mmol/L (136-145); UREA NITROGEN, BLOOD 22 mg/dL (7-18)
[2019-07-04 08:40] VITALS: BP 103/65
[2019-07-04] MEDS: DOCUSATE SODIUM 100 MG CAPSULE PO SCH ×2 (08:50→20:46)
[2019-07-04] MEDS: OLANZapine 10 MG TABLET PO SCH (08:51)
[2019-07-04] MEDS: LISINOPRIL 20 MG TABLET PO SCH (08:51)
[2019-07-04] MEDS: HALOPERIDOL 5 MG TABLET PO SCH ×2 (08:51→20:46)
[2019-07-04 15:20] VITALS: BP 103/55
[2019-07-04 19:45] VITALS: BP 91/54
[2019-07-04] MEDS: DIVALPROEX SODIUM 500 MG ER TABLET PO SCH (20:46)
[2019-07-04 23:37] VITALS: BP 115/59
[2019-07-05 05:14] VITALS: BP 103/55
[2019-07-05 07:06] LABS: BASOPHILS % (AUTO) 0.5 % (0.0-2.0); EOSINOPHILS % (AUTO) 1.6 % (1.0-6.0); HEMATOCRIT 34.9 % (41-53); HEMOGLOBIN 11.9 g/dL (13.5-17.5); LYMPHOCYTES # (AUTO) 1.8 K/uL (1.0-4.8); LYMPHOCYTES % (AUTO) 36.6 % (22.0-44.0); MEAN CORPUSCULAR HEMOGLOBIN 30.6 pg (26.0-34.0); MEAN CORPUSCULAR VOLUME 90 fL (80-100); MONOCYTES # (AUTO) 0.3 K/uL (0.1-1.0); MONOCYTES % (AUTO) 6.3 % (2.0-9.0); NEUTROPHILS # (AUTO) 2.7 K/uL (1.8-7.7); PLATELET COUNT (AUTO) 367 K/uL (150-450); RED BLOOD CELL COUNT(AUTO) 3.89 MIL/uL (4.50-5.90); RED CELL DISTRIBUTION WIDTH 14.7 % (11.5-14.5)
[2019-07-05 07:13] LABS: ANION GAP 7 mmol/L (8-16); CARBON DIOXIDE 28 mmol/L (22-29); CHLORIDE 105 mmol/L (98-107); CREATININE 0.99 mg/dL (0.60-1.30); GLOMERULAR FILTR. RATE CALC > 60 mL/min (>60); GLUCOSE,RANDOM 93 mg/dL (70-110); POTASSIUM 4.8 mmol/L (3.5-5.1); SODIUM SERUM 140 mmol/L (136-145); UREA NITROGEN, BLOOD 27 mg/dL (7-18)
[2019-07-05 08:00] VITALS: BP 121/85
[2019-07-05] MEDS: OLANZapine 10 MG TABLET PO SCH (08:02)
[2019-07-05] MEDS: DOCUSATE SODIUM 100 MG CAPSULE PO SCH (08:02)
[2019-07-05] MEDS: LISINOPRIL 20 MG TABLET PO SCH (08:03)
[2019-07-05] MEDS: HALOPERIDOL 5 MG TABLET PO SCH (08:03)
[2019-07-05 08:05] VITALS: BP 104/58
[2019-07-05] MEDS ORDERED: DOCU-275 PO (09:17)
== END 2019-07-05 09:55 | disposition home or self-care (01) | DRG 70 ==
LOC: EMS 18:49 → 6N 19:00 → 4E 07-01 18:51 → 6N 07-03 17:05
PROVIDERS: ADMIT Internal Medicine; ATTEND Internal Medicine
DX: G93.40 Encephalopathy, unspecified (principal); E43 Unspecified severe protein-calorie malnutrition; F20.9 Schizophrenia, unspecified; I10 Essential (primary) hypertension; L40.9 Psoriasis, unspecified; F17.210 Nicotine dependence, cigarettes, uncomplicated; D64.9 Anemia, unspecified; Z79.899 Other long term (current) drug therapy
CPT/HCPCS: 70450; 82948; 83605; 87081; 93005; 97116; 97162; G0378; G0480; J7050